=== PATIENT | male | born 1960 | race Caucasian/White ===

== ENCOUNTER 2020-06-07 09:46 | Outpatient (REF) | payer OTHER, SELFPAY ==
[2020-06-07 11:46] LABS: Alanine Aminotransferase 19 U/L (0-40); Albumin Level 4.2 g/dL (3.5-5.0); Alkaline Phosphatase 21 U/L (39-117); Anion Gap 13 (12-20); Aspartate Amino Transferase 16 U/L (5-37); Bilirubin Total 0.4 mg/dL (0.0-1.0); Blood Urea Nitrogen 21 mg/dL (9-16); Calcium 9.6 mg/dL (8.4-10.2); Carbon Dioxide 24 mmol/L (22-29); Chloride 106 mmol/L (96-108); Cholesterol 154 mg/dL; Estimated Glomerular Filt Rate 47; Glucose Fasting 97 mg/dL (60-99); HDL Cholesterol 44 mg/dL; LDL Cholesterol Calculated 80 mg/dl; Potassium 4.2 mmol/l (3.3-5.1); Sodium 139 mmol/L (135-145); Total Protein 6.9 g/dL (6.5-8.0); Triglycerides 154 mg/dL
[2020-06-07 12:09] LABS: Vitamin D 25-OH Total 36.1 ng/mL (>30)
== END 2020-06-07 09:47 | disposition home or self-care (01) ==
LOC: HO.HMGCLDS 09:46
PROVIDERS: PCP Internal Medicine; Visit Provider Internal Medicine
DX: E78.9 Disorder of lipoprotein metabolism, unspecified (principal); I10 Essential (primary) hypertension; E55.9 Vitamin D deficiency, unspecified
CPT/HCPCS: 80053; 80061; 82306

== ENCOUNTER 2021-08-30 11:51 | Outpatient (REF) | payer OTHER, SELFPAY ==
[2021-08-30 14:20] LABS: Alanine Aminotransferase 34 U/L (0-40); Albumin Level 4.4 g/dL (3.5-5.0); Alkaline Phosphatase 21 U/L (39-117); Anion Gap 11 (12-20); Aspartate Amino Transferase 24 U/L (5-37); Bilirubin Total 0.5 mg/dL (0.0-1.0); Blood Urea Nitrogen 15 mg/dL (9-16); Calcium 10.2 mg/dL (8.4-10.2); Carbon Dioxide 24 mmol/L (22-29); Chloride 111 mmol/L (96-108); Estimated Glomerular Filt Rate 54; Glucose Random 103 mg/dL (60-115); Sodium 142 mmol/L (135-145); Total Protein 7.1 g/dL (6.5-8.0)
[2021-09-01 03:26] LABS: LDL Cholesterol Direct 109 mg/dL (<100)
== END 2021-08-30 11:52 | disposition home or self-care (01) ==
LOC: HO.HMGCLDS 11:51
PROVIDERS: PCP Internal Medicine; Visit Provider Internal Medicine
DX: I10 Essential (primary) hypertension (principal); E78.9 Disorder of lipoprotein metabolism, unspecified; N28.9 Disorder of kidney and ureter, unspecified
CPT/HCPCS: 36415; 80053; 83721

== ENCOUNTER 2022-04-11 11:42 | Outpatient (REF) | payer OTHER, SELFPAY ==
[2022-04-11 14:23] LABS: Alanine Aminotransferase 26 U/L (0-40); Albumin Level 4.6 g/dL (3.5-5.0); Alkaline Phosphatase 24 U/L (39-117); Anion Gap 16 (12-20); Aspartate Amino Transferase 23 U/L (5-37); Bilirubin Total 0.2 mg/dL (0.0-1.0); Blood Urea Nitrogen 14 mg/dL (9-16); Calcium 10.1 mg/dL (8.4-10.2); Carbon Dioxide 20 mmol/L (22-29); Chloride 109 mmol/L (96-108); Estimated Glomerular Filt Rate 60; Glucose Random 74 mg/dL (60-115); Potassium 3.9 mmol/L (3.3-5.1); Sodium 141 mmol/L (135-145); Total Protein 7.5 g/dL (6.5-8.0)
[2022-04-13 06:52] LABS: LDL Cholesterol Direct 110 mg/dL (<100)
== END 2022-04-11 11:43 | disposition home or self-care (01) ==
LOC: HO.HMGCLDS 11:42
PROVIDERS: PCP Internal Medicine; Visit Provider Internal Medicine
DX: E78.9 Disorder of lipoprotein metabolism, unspecified (principal); F80.81 Childhood onset fluency disorder; F81.9 Developmental disorder of scholastic skills, unspecified; N28.9 Disorder of kidney and ureter, unspecified; I10 Essential (primary) hypertension
CPT/HCPCS: 36415; 80053; 83721

== ENCOUNTER 2023-04-17 12:05 | Outpatient (AMB) | payer OTHER, SELFPAY ==
--- NOTE | 2023-04-17 12:08 | A.OFFPC_ITS ---
Vital Signs 04/17/23 12:15 Height 5 ft 7 in Weight 183 lb BMI 28.7 BP 162/106 H Blood Pressure Location Rt brachial Position Sitting Pulse 83 Pulse Source Pulse Oximeter Pulse Oximetry (%) 97 Oxygen Delivery Method Room Air Intake Visit Reasons: Discuss hearing issues/test Allergies No Known Allergies Allergy (Verified 04/17/23 12:08) Medication List - Last Reconciled 04/17/23 by Jimmy Rucker MD amlodipine 5 mg PO DAILY cholecalciferol (vitamin D3) 25 mcg PO DAILY 90 days simvastatin 40 mg PO BEDTIME Tobacco use date assessed: 04/17/23 Fall risk assessment: No Falls in past year Last assessed Fall Risk: 04/17/23 Dental Screening Dental Screen Date: 04/17/23 Did you have a dental visit in the last 12 months?: No Did you have a dental problem in the last 6 months where you did not have access to dental care?: No Was dental information given to patient?: Patient has dentist HPI Discuss hearing issues/test HPI Details Patient is 62-year-old gentleman with learning disability came in with his brother for follow-up appointment Patient has not been seen since 1 year He is seeing Dr. Burton nephrology last note was from March of this year, reviewed No changes were made Patient is currently on amlodipine 5 mg but he has not been taking the medication since he was not seen the medication was not filled He is also supposed to be on simvastatin 40 mg, both medications sent. His brother says that they have a blood pressure monitor at home which is working properly because they recently checked it on their mother any does high, she was taken to emergency room EMT checked the blood pressure when they arrived home and it was the same blood pressure as their own blood pressure monitor. Brother says that the blood pressure is running around 120 systolic at home patient usually feel nervous when he comes to doctor's office. Patient is having difficulty hearing and the brother is requesting audiology prabhakar ointment which I have placed for the patient On examination he does have cerumen blocking tympanic membrane left more than right, I would recommend that is start using Debrox [id number] for a week to clear that. We can also flush the ears after the week of using Debrox if needed. Labs were done at Dr. Burton office I will get the reports. Follow-up 4 months [facility] Medical History Stuttering Nephropathy Lipid disorder Hypertension, essential Surgical History History of colonoscopy Hx of cholecystectomy Family History Father Alcohol abuse Mother HTN (hypertension) Sister Lung cancer Maternal Grandfather No problems noted. Maternal Grandmother No problems noted. Paternal Grandfather No problems noted. Paternal Grandmother No problems noted. Sister No problems noted. Sister No problems noted. Brother No problems noted. Brother No problems noted. Brother No problems noted. Brother No problems noted. Brother No problems noted. Social History Housing: Other (mobile home) Alcohol intake: never Patient Tobacco Use Status: Never used Tobacco e-Cigarette/Vaping Use: Never Used Second Hand Smoke Exposure: No Current occupational status: unemployed Cognitive needs: No Hearing needs: No Vision needs: No Questionnaire PHQ-9 Over the last 2 weeks, how often have you been bothered by any of the following problems? 1. Little interest or pleasure in doing things: not at all 2. Feeling down, depressed, or hopeless: not at all 3. Trouble falling or staying asleep, or sleeping too much: not at all 4. Feeling tired or having little energy: not at all 5. Poor appetite or overeating: not at all 6. Feeling bad about yourself - or that you are a failure or have let yourself or your family down: not at all 7. Trouble concentrating on things, such as reading the newspaper or watching television: nearly every day 8. Moving or speaking so slowly that other people could have noticed. Or the opposite - being so fidgety or restless that you have been moving around a lot more than usual: nearly every day 9. Thoughts that you would be better off or of hurting yourself in some way: not at all Total score: 6 Depression Screening Interpretation: Positive Depression Screening Follow-up: Existing condition and Follow-up Visit Requested Depression Screening Done: Yes 65499 - PHQ-9 Billing: Yes Source: Developed by Drs. Yeison Vora, Yemi Artis and colleagues, with an educational wood from [employer]. Thrive Questionnaire Date Thrive assessed: 04/17/23 I am a: Patient What is your living situation today?: I have a steady place to live Within the past 12 months, did the food you bought not last and you didn't have the money to get more?: Never true Within the past 12 months, did you worry whether your food would run out before you got money to buy more?: Never true Do you have trouble paying for medicines?: No Do you have trouble getting transportation to medical appointments?: No Do you have trouble paying your heating and electricity bill?: No Do you have trouble taking care of your child, family member or friend?: No Do you have trouble with day-to-day activities such as bathing, preparing meals, shopping, managing finances, etc.?: No Are you currently unemployed and looking for a job?: No Are you interested in more education?: No Please select the resources that you would like help with: None Currently or been in a relationship where the following occur: no concerns reported AUDIT C Alcohol Use Questionnaire (AUDIT-C) 1. How often do you have a drink containing alcohol?: Never 3. How often do you have six or more drinks on one occasion?: Never Total Score: 0 Score Reviewed/Action Taken: Yes JED-7 AMB Questionnaire JED-7 Date JED - 7 assessed: 04/17/23 Feeling nervous, anxious, or on edge: 0 = Not at all Not being able to stop or control worryin = Not at all Worrying too much about different things: 0 = Not at all Trouble relaxin = Not at all Being so restless that it is hard to sit still: 0 = Not at all Becoming easily annoyed or irritable: 0 = Not at all Feeling afraid as if something awful might happen: 0 = Not at all Total JED-7 score (0-4 normal; 5-9 mild; 10-14 moderate; 15-21 severe): 0 Source: Developed by Drs. Yeison Vora, Stacey Nieves, Yemi Eugene and colleagues, with an educational wood from [employer]. JED-7 Assessment Billing JED-7 Assessment Tool: JED-7 Assessment 95013 Review of Systems Const Denies chills and Denies fever(s) ENT Denies epistaxis and Denies nasal discharge Card Denies chest pain Resp Denies chest congestion, Denies cough and Denies hemoptysis GI Denies diarrhea and Denies nausea Skin/Breast Denies rash Neuro Reports no additional complaints Psych Reports no additional complaints Endo Reports no additional complaints Physical exam (Primary Care) Vital Signs: Last Vital Signs Pulse 83 04/17/23 12:15 BP 162/106 H 04/17/23 12:15 Pulse Ox 97 04/17/23 12:15 Oxygen Delivery Method Room Air 04/17/23 12:15 BMI result Body Mass Index 28.7 Tobacco/Smoking Status: Tobacco use Status Tobacco use date assessed 04/17/23 04/17/23 12:11 Patient Tobacco Use Status Never used Tobacco 04/17/23 12:11 e-Cigarette/Vaping Use Never Used 04/17/23 12:11 PHQ-9: PHQ-9 Score PHQ-9: Total score 6 04/17/23 12:53 Depression Screening Interpretation: Positive Depression Screening Follow-up: Existing condition and Follow-up Visit Requested Thrive Assessment: Date of Thrive Assessment Date Thrive assessed 04/17/23 04/17/23 12:53 Currently or been in a relationship where the following occur: no concerns reported Const General: cooperative, comfortable and no acute distress Orientation/consciousness: patient oriented x3 HENMT Other: Excessive cerumen in both ears Head: Yes normocephalic Eyes General: appearance normal, both eyes and all related structures Neck Neck: Yes supple Resp Effort & Inspection: normal respiratory effort, no cough and no stridor Cardio Rhythm: regular rhythm Heart sounds: S1 normal heart sound present and S2 normal heart sound present Skin General skin exam: turgor normal Neuro General: patient oriented x3, tone normal and moves all extremities Extrem Right lower extremity: no edema Left lower extremity: no edema Assessment and Plan Assessment & Plan (1) Hypertension, essential: Code(s): I10 - Essential (primary) hypertension (2) Lipid disorder: Code(s): E78.9 - Disorder of lipoprotein metabolism, unspecified (3) Blurring of vision: Code(s): H53.8 - Other visual disturbances (4) Difficulty hearing: Code(s): H91.90 - Unspecified hearing loss, unspecified ear Qualifiers: Laterality: bilateral Qualified Code(s): H91.93 - Unspecified hearing loss, bilateral (5) Excessive cerumen in both ear canals: Code(s): H61.23 - Impacted cerumen, bilateral (6) Stuttering: Code(s): F80.81 - Childhood onset fluency disorder (7) Nephropathy: Code(s): N28.9 - Disorder of kidney and ureter, unspecified Plan Patient is 62-year-old gentleman with learning disability came in with his brother for follow-up appointment Patient has not been seen since 1 year He is seeing Dr. Burton nephrology last note was from March of this year, reviewed No changes were made Patient is currently on amlodipine 5 mg but he has not been taking the medication since he was not seen the medication was not filled He is also supposed to be on simvastatin 40 mg, both medications sent. His brother says that they have a blood pressure monitor at home which is working properly because they recently checked it on their mother any does high, she was taken to emergency room EMT checked the blood pressure when they arrived home and it was the same blood pressure as their own blood pressure monitor. Brother says that the blood pressure is running around 120 systolic at home pat ient usually feel nervous when he comes to doctor's office. Patient is having difficulty hearing and the brother is requesting audiology appointment which I have placed for the patient On examination he does have cerumen blocking tympanic membrane left more than right, I would recommend that is start using Debrox [id number] for a week to clear that. We can also flush the ears after the week of using Debrox if needed. Labs were done at Dr. Burton office I will get the reports. Patient has never had eye exam, he is now having difficulty reading, and is in need for ophthalmology evaluation Follow-up 4 months Orders: Referrals Ophthalmology Referral H53.8 - Other visual disturbances Audiology Referral H91.90 - Unspecified hearing loss, unspecified ear Coding Level of Care Code Est Pt Level 4 (77008) Diagnoses Hypertension, essential I10 Lipid disorder E78.9 Blurring of vision H53.8 Hearing difficulty of both ears H91.93 Laterality: bilateral Excessive cerumen in both ear canals H61.23 Stuttering F80.81 Nephropathy N28.9 Additional Codes JED-7 Assessment Billing - JED-7 Assessment Tool: JED-7 Assessment 15554 ([id number])
[2023-04-17 12:15] VITALS: BP 162/106; PULSE 83; O2SAT 97; BMI 28.7
== END 2023-04-17 12:39 | disposition home or self-care (01) ==
PROVIDERS: PCP Internal Medicine; Visit Provider Internal Medicine
DX: I10 Essential (primary) hypertension (principal); E78.9 Disorder of lipoprotein metabolism, unspecified; H53.8 Other visual disturbances; H91.93 Unspecified hearing loss, bilateral; H61.23 Impacted cerumen, bilateral; F80.81 Childhood onset fluency disorder; N28.9 Disorder of kidney and ureter, unspecified
CPT/HCPCS: 99214

== ENCOUNTER 2023-07-20 10:25 | Outpatient (REF) | payer MEDICAID, SELFPAY | END 2023-07-20 10:26 | disposition home or self-care (01) | LOC: HO.SH 10:25 | PROVIDERS: Visit Provider Internal Medicine | DX: Z01.118 Encounter for examination of ears and hearing with other abnormal findings (principal); H61.22 Impacted cerumen, left ear | CPT/HCPCS: 92567 ==

== ENCOUNTER 2023-07-27 08:16 | Outpatient (AMB) | payer MEDICARE, MEDICAID, SELFPAY ==
[2023-07-27 08:40] VITALS: BP 160/90; PULSE 97; TEMP 36.5; O2SAT 97; BMI 28.2
--- NOTE | 2023-07-27 08:40 | MHC.OFFWIV ---
Intake Vital Signs 07/27/23 08:40 Height 5 ft 7 in Weight 180 lb BMI 28.2 BP 160/90 H Blood Pressure Location Lt brachial Position Sitting Pulse 97 Pulse Source Pulse Oximeter Temp 97.7 F Temp Source Temporal Artery Scan Pulse Oximetry (%) 97 Oxygen Delivery Method Room Air Intake Visit Reasons: EST/ear wax removal(lobby) Intake Note: pt is here today for ear wax removal started 1 week ago Patient Tobacco Use Status: Never used Tobacco Allergies No Known Allergies Allergy (Verified 07/27/23 08:40) Do you need a note to return to daycare/school/sports/work: No HPI HPI Comments History of Present Illness Details This is a 63-year-old male who presented to the office complaining of cerumen impaction. Patient went for a hearing test last week and was told he had ear wax in both of his ears and he needed them cleaned out before he could have the hearing test. [facility] Medical History Stuttering Nephropathy Lipid disorder Hypertension, essential Surgical History History of colonoscopy Hx of cholecystectomy Family History Father Alcohol abuse Mother HTN (hypertension) Sister Lung cancer Maternal Grandfather No problems noted. Maternal Grandmother No problems noted. Paternal Grandfather No problems noted. Paternal Grandmother No problems noted. Sister No problems noted. Sister No problems noted. Brother No problems noted. Brother No problems noted. Brother No problems noted. Brother No problems noted. Brother No problems noted. Social History Housing: Other Alcohol intake: never Patient Tobacco Use Status: Never used Tobacco e-Cigarette/Vaping Use: Never Used Second Hand Smoke Exposure: No Current occupational status: unemployed Cognitive needs: No Hearing needs: No Vision needs: No Review of Systems Const All systems reviewed & are unremarkable except as noted in HPI and below Reports no additional complaints Eyes Reports no additional complaints ENT Reports no additional complaints Card Reports no additional complaints Resp Reports no additional complaints GI Reports no additional complaints Reports no additional complaints Musc Reports no additional complaints Skin/Breast Reports system reviewed and no additional complaints, except as documented Neuro Reports no additional complaints Psych Reports no additional complaints Endo Reports no additional complaints Ever/Lymph Reports no additional complaints Aller/Immun Reports no additional complaints Physical Exam Vital Signs: Last Vital Signs Temp 97.7 F 07/27/23 08:40 Pulse 97 07/27/23 08:40 BP 160/90 H 07/27/23 08:40 Pulse Ox 97 07/27/23 08:40 Oxygen Delivery Method Room Air 07/27/23 08:40 BMI result Body Mass Index 28.2 Const Other: Vital signs reviewed. Constitutional: Non-toxic appearing. No acute distress. Well-developed and well-nourished. HEENT: Normocephalic and atraumatic. Bilateral cerumen impaction, left greater than right. There is some swelling of bilateral external auditory canals. Skin: Warm and dry. No rashes or lesions noted. Neck: Full and painless range of motion. No cervical lymphadenopathy. Cardio: Regular rate and rhythm. No murmurs, gallops, or rubs. No lower extremity edema. No JVD. Pulmonary: No respiratory distress. No accessory muscle usage. Clear to auscultation bilaterally without wheezing, crackles, or rhonchi. Gastrointestinal: Soft, nontender, and nondistended in all 4 quadrants. Normoactive bowel sounds in all 4 quadrants. Genitourinary: No CVA tenderness. Musculoskeletal: Normal range of motion in joints throughout the body. No deformity or other signs of injury. Neuro: Alert and oriented x4. Cranial nerves 2-12 grossly intact. No focal deficits appreciated. Psych: Normal mood and affect. Assessment & Plan Assessment & Plan (1) Excessive cerumen in both ear canals: Code(s): H61.23 - Impacted cerumen, bilateral Plan: This is a 63-year-old male who presented the office complaining of bilateral cerumen impaction. We attempted cerumen removal bilaterally. On reexamination, there is persistent bilateral cerumen impaction though both ears do appear somewhat improved and the patient reports both ears do feel better. The cerumen appears to be deep in the external auditory canal and we are unable to completely irrigate his ears in the urgent care. I recommended the patient obtain an ear/nose/throat referral from his primary care physician for further management as the patient became dizzy with irrigation and we are unable to remove all of the cerumen. Patient and his caregiver agree with this plan and they will schedule an appointment with his PCP for further management. Medications: New hydrocortisone-acetic acid 1-2 % 4 drps otic (ears) TID 10 mL 0RF Coding Level of Care Code Est Pt Level 3 (47771) Diagnoses Excessive cerumen in both ear canals H61.23
== END 2023-07-27 09:32 | disposition home or self-care (01) ==
PROVIDERS: PCP Internal Medicine; Visit Provider Physician Assistant Medical
DX: H61.23 Impacted cerumen, bilateral (principal)
CPT/HCPCS: 99213

== ENCOUNTER 2023-08-08 15:09 | Outpatient (AMB) | payer MEDICARE, MEDICAID, SELFPAY ==
[2023-08-08 15:13] VITALS: BP 172/104; PULSE 112; O2SAT 97; BMI 28.4
--- NOTE | 2023-08-08 15:13 | MHC.PC.OV ---
Vital Signs 08/08/23 15:13 Height 5 ft 7 in Weight 181 lb 2 oz BMI 28.4 BP 172/104 H Blood Pressure Location Rt brachial Position Sitting Pulse 112 H Pulse Source Pulse Oximeter Pulse Oximetry (%) 97 Oxygen Delivery Method Room Air Intake Visit Reasons: ENT referral Ear obstruction rt side Allergies No Known Allergies Allergy (Verified 08/08/23 15:13) Medication List - Last Reconciled 08/08/23 by Jimmy Rucker MD amlodipine 10 mg PO DAILY 90 days cholecalciferol (vitamin D3) 25 mcg PO DAILY 90 days hydrocortisone-acetic acid 1-2 % 4 drps otic (ears) TID simvastatin 40 mg PO BEDTIME Tobacco use date assessed: 08/08/23 Fall risk assessment: No Falls in past year Last assessed Fall Risk: 08/08/23 Dental Screening Dental Screen Date: 08/08/23 Did you have a dental visit in the last 12 months?: Yes Did you have a dental problem in the last 6 months where you did not have access to dental care?: No Was dental information given to patient?: Patient has dentist HPI ENT referral Ear obstruction rt side HPI Details Patient is 63-year-old gentleman with learning disability came in here with his brother His blood pressure is very high at 172/104, usually it is have any comes over for Dr. Visit Brother is monitoring blood pressure at home and he tells me that it is running around high 130s to 140 I am adding atenolol 25 mg to his amlodipine 10 mg He is also having excessive vaccine is year, we have tried to irrigate the wax today He is also due for labs Patient is to return in 3 weeks for follow-up for blood pressure and labs [facility] Medical History Stuttering Nephropathy Lipid disorder Hypertension, essential Surgical History History of colonoscopy Hx of cholecystectomy Family History Father Alcohol abuse Mother HTN (hypertension) Sister Lung cancer Maternal Grandfather No problems noted. Maternal Grandmother No problems noted. Paternal Grandfather No problems noted. Paternal Grandmother No problems noted. Sister No problems noted. Sister No problems noted. Brother No problems noted. Brother No problems noted. Brother No problems noted. Brother No problems noted. Brother No problems noted. Social History Housing: Other Alcohol intake: never Patient Tobacco Use Status: Never used Tobacco e-Cigarette/Vaping Use: Never Used Second Hand Smoke Exposure: No service: No Current occupational status: unemployed Cognitive needs: No Hearing needs: No Vision needs: No Questionnaire Thrive Questionnaire Date Thrive assessed: 04/17/23 AUDIT C Alcohol Use Questionnaire (AUDIT-C) 1. How often do you have a drink containing alcohol?: Never 3. How often do you have six or more drinks on one occasion?: Never Total Score: 0 Score Reviewed/Action Taken: Yes JED-7 AMB Questionnaire JED-7 Date JED - 7 assessed: 04/17/23 Source: Developed by Drs. Yeison Vora, Stacey Nieves, Yemi Eugene and colleagues, with an educational wood from [employer]. Review of Systems Const Denies chills and Denies fever(s) ENT Denies epistaxis and Denies nasal discharge Card Denies chest pain Resp Denies chest congestion, Denies cough and Denies hemoptysis GI Denies diarrhea and Denies nausea Skin/Breast Denies rash Neuro Reports no additional complaints Psych Reports no additional complaints Endo Reports no additional complaints Physical exam (Primary Care) Vital Signs: Last Vital Signs Pulse 112 H 08/08/23 15:13 BP 172/104 H 08/08/23 15:13 Pulse Ox 97 08/08/23 15:13 Oxygen Delivery Method Room Air 08/08/23 15:13 BMI result Body Mass Index 28.4 Tobacco/Smoking Status: Tobacco use Status Tobacco use date assessed 08/08/23 08/08/23 15:15 Patient Tobacco Use Status Never used Tobacco 08/08/23 15:15 e-Cigarette/Vaping Use Never Used 08/08/23 15:15 Thrive Assessment: Date of Thrive Assessment Date Thrive assessed 04/17/23 08/08/23 15:15 Const General: cooperative, comfortable and no acute distress Orientation/consciousness: patient oriented x3 HENMT Head: Yes normocephalic Eyes General: appearance normal, both eyes and all related structures Neck Neck: Yes supple Resp Effort & Inspection: normal respiratory effort, no cough and no stridor Cardio Rhythm: regular rhythm Heart sounds: S1 normal heart sound present and S2 normal heart sound present Skin General skin exam: turgor normal Neuro General: patient oriented x3, tone normal and moves all extremities Extrem Right lower extremity: no edema Left lower extremity: no edema Office Procedures Cerumen Removal From which ear canal was the cerumen removed: bilateral Removal: irrigation Notes: patient tolerated procedure well, no complications and ear canal clear [id number] Irrigation/Lavage Assessment and Plan Assessment & Plan (1) Uncontrolled hypertension: Code(s): I10 - Essential (primary) hypertension (2) Excessive cerumen in both ear canals: Code(s): H61.23 - Impacted cerumen, bilateral (3) Learning disability: Code(s): F81.9 - Developmental disorder of scholastic skills, unspecified (4) Nephropathy: Code(s): N28.9 - Disorder of kidney and ureter, unspecified (5) Lipid disorder: Code(s): E78.9 - Disorder of lipoprotein metabolism, unspecified Plan Patient is 63-year-old gentleman with learning disability came in here with his brother , patient have a history of nephropathy most likely secondary to hypertension His blood pressure is very high at 172/104, usually it is have any comes over for Dr. Visit Brother is monitoring blood pressure at home and he tells me that it is running around high 130s to 140 I am adding atenolol 25 mg to his amlodipine 10 mg He is also having excessive vaccine is year, we have tried to irrigate the wax today He is also due for labs Patient is to return in 3 weeks for follow-up for blood pressure and labs Orders: Orders LDL Cholesterol Direct Today E78.9 - Disorder of lipoprotein metabolism, unspecified, F81.9 - Developmental disorder of scholastic skills, unspecified, H61.23 - Impacted cerumen, bilateral, I10 - Essential (primary) hypertension, N28.9 - Disorder of kidney and ureter, unspecified TSH reflex Free T4 Today E78.9 - Disorder of lipoprotein metabolism, unspecified, F81.9 - Developmental disorder of scholastic skills, unspecified, H61.23 - Impacted cerumen, bilateral, I10 - Essential (primary) hypertension, N28.9 - Disorder of kidney and ureter, unspecified Complete Blood Count Auto Diff Today E78.9 - Disorder of lipoprotein metabolism, unspecified, F81.9 - Developmental disorder of scholastic skills, unspecified, H61.23 - Impacted cerumen, bilateral, I10 - Essential (primary) hypertension, N28.9 - Disorder of kidney and ureter, unspecified Comprehensive Met. Panel Today E78.9 - Disorder of lipoprotein metabolism, unspecified, F81.9 - Developmental disorder of scholastic skills, unspecified, H61.23 - Impacted cerumen, bilateral, I10 - Essential (primary) hypertension, N28.9 - Disorder of kidney and ureter, unspecified Medications: New atenolol 25 mg PO DAILY 30 tabs 0RF Coding Level of Care Code Est Pt Level 4 (67921) Diagnoses Uncontrolled hypertension I10 Excessive cerumen in both ear canals H61.23 Learning disability F81.9 Nephropathy N28.9 Lipid disorder E78.9 CPT Codes Office Procedure - CPT: 31230-Baz Irrigation/Lavage ([id number])
== END 2023-08-08 15:48 | disposition home or self-care (01) ==
PROVIDERS: PCP Internal Medicine; Visit Provider Internal Medicine
DX: I10 Essential (primary) hypertension (principal); H61.23 Impacted cerumen, bilateral; F81.9 Developmental disorder of scholastic skills, unspecified; N28.9 Disorder of kidney and ureter, unspecified; E78.9 Disorder of lipoprotein metabolism, unspecified
CPT/HCPCS: 69209; 99214

== ENCOUNTER 2023-08-09 11:12 | Outpatient (REF) | payer MEDICAID, SELFPAY ==
[2023-08-09 13:13] LABS: MANUAL DIFF FLAG NO
[2023-08-09 14:12] LABS: Basophils Absolute Auto 0.1 X10*3/uL (0.0-0.2); Basophils Percent Auto 0.7 % (0-2); Eosinophils Absolute Auto 0.1 X10*3/uL (0.0-0.4); Eosinophils Percent Auto 1.7 % (0-4); Hematocrit 49.9 % (42.0-52.0); Hemoglobin 16.8 g/dl (14.0-18.0); Imm Gran Abs Auto 0.03 X10*3/uL (0.00-0.03); Imm Gran Pct Auto 0.4 % (0.0-0.4); Lymphocytes Absolute Auto 2.8 X10*3/uL (1.2-4.9); Lymphocytes Percent Auto 33.6 % (20-40); Mean Corpuscular HGB Conc 33.7 g/dl (31.0-36.0); Mean Corpuscular Hemoglobin 29.6 pg (27.0-33.0); Mean Platelet Volume 12.3 fL (9.4-12.4); Monocytes Absolute Auto 0.7 X10*3/uL (0.1-1.2); Monocytes Percent Auto 8.6 % (2-11); Neutrophils Absolute Auto 4.5 x10*3/uL (2.0-8.3); Platelet Count 202 X10*3/uL (160-400); Red Blood Count 5.67 X10*6/uL (4.60-5.80); Red Cell Distribution Width 13.2 % (11.0-16.0); White Blood Count 8.2 X10*3/uL (4.8-10.8)
[2023-08-09 14:36] LABS: Alanine Aminotransferase 25 U/L (0-40); Albumin Level 4.4 g/dL (3.5-5.0); Alkaline Phosphatase 44 U/L (39-117); Anion Gap 14 (12-20); Aspartate Amino Transferase 23 U/L (5-37); Bilirubin Total 0.4 mg/dL (0.0-1.0); Blood Urea Nitrogen 13 mg/dL (9-16); Calcium 10.2 mg/dL (8.4-10.2); Carbon Dioxide 22 mmol/L (22-29); Chloride 110 mmol/L (96-108); Estimated Glomerular Filt Rate > 60; Glucose Random 98 mg/dL (60-115); Potassium 3.9 mmol/L (3.3-5.1); Sodium 142 mmol/L (135-145); Total Protein 7.8 g/dL (6.5-8.0)
[2023-08-09 14:43] LABS: TSH reflex Free T4 0.18 uIU/mL (0.32-4.0)
[2023-08-09 15:26] LABS: Free T4 (Free Thyroxine) 0.94 ng/dL (0.71-1.85)
[2023-08-10 09:18] LABS: LDL Cholesterol Direct 87 mg/dL (<100)
== END 2023-08-09 11:13 | disposition home or self-care (01) ==
LOC: HO.HMGCLDS 11:12
PROVIDERS: PCP Internal Medicine; Visit Provider Internal Medicine
DX: I10 Essential (primary) hypertension (principal); N28.9 Disorder of kidney and ureter, unspecified; E78.9 Disorder of lipoprotein metabolism, unspecified; H61.23 Impacted cerumen, bilateral; F81.9 Developmental disorder of scholastic skills, unspecified
CPT/HCPCS: 36415; 80053; 83721; 84439; 84443; 85025

== ENCOUNTER 2023-09-06 08:26 | Outpatient (REF) | payer MEDICARE, MEDICAID, SELFPAY ==
[2023-09-06 12:05] LABS: TSH reflex Free T4 2.25 uIU/mL (0.32-4.0)
== END 2023-09-06 08:27 | disposition home or self-care (01) ==
LOC: HO.HMGCLDS 08:26
PROVIDERS: PCP Internal Medicine; Visit Provider Internal Medicine
DX: R79.89 Other specified abnormal findings of blood chemistry (principal)
CPT/HCPCS: 36415; 84443

== ENCOUNTER 2023-10-10 14:11 | Outpatient (AMB) | payer MEDICARE, MEDICAID, SELFPAY ==
[2023-10-10 14:11] VITALS: BP 146/88; PULSE 75; O2SAT 95; BMI 29.3
--- NOTE | 2023-10-10 14:11 | A.OFFPC_ITS ---
Vital Signs 3 10/10/23 14:11 Height 5 ft 7 in Weight 187 lb 4 oz BMI 29.3 BP 146/88 H Blood Pressure Location Rt brachial Position Sitting Pulse 75 Pulse Source Pulse Oximeter Pulse Oximetry (%) 95 Oxygen Delivery Method Room Air Intake Visit Reasons: 3 week follow up Allergies No Known Allergies Allergy (Verified 10/10/23 14:12) Medication List - Last Reconciled 10/10/23 by Jimmy Rucker MD amlodipine 10 mg PO DAILY 90 days atenolol 25 mg PO DAILY cholecalciferol (vitamin D3) 25 mcg PO DAILY 90 days hydrocortisone-acetic acid 1-2 % 4 drps otic (ears) TID simvastatin 40 mg PO BEDTIME Tobacco use date assessed: 10/10/23 Fall risk assessment: No Falls in past year Last assessed Fall Risk: 10/10/23 Dental Screening Dental Screen Date: 10/10/23 Did you have a dental visit in the last 12 months?: Yes Did you have a dental problem in the last 6 months where you did not have access to dental care?: No Was dental information given to patient?: Patient has dentist HPI 3 week follow up 2 HPI0 Details Patient is 63-year-old gentleman with learning disability came in here with his brother , He has developed cauliflower shaped skin growth on his left ear, that need to be evaluated by Dermatology patient have a history of nephropathy most likely secondary to hypertension His blood pressure is now controlled, patient is on atenolol 25 mg and amlodipine 10 mg They are monitoring it at home and it runs mostly in 120s sometimes 130 systolic It is elevated today but that could be because patient is in doctor's office. Labs are needed before next visit in December patient have appointment for physical exam [facility] Medical History Stuttering Nephropathy Lipid disorder Hypertension, essential Surgical History History of colonoscopy Hx of cholecystectomy Family History Father Alcohol abuse Mother HTN (hypertension) Sister Lung cancer Maternal Grandfather No problems noted. Maternal Grandmother No problems noted. Paternal Grandfather No problems noted. Paternal Grandmother No problems noted. Sister No problems noted. Sister No problems noted. Brother No problems noted. Brother No problems noted. Brother No problems noted. Brother No problems noted. Brother No problems noted. Social History Housing: Other Alcohol intake: never Patient Tobacco Use Status: Never used Tobacco e-Cigarette/Vaping Use: Never Used Second Hand Smoke Exposure: No service: No Current occupational status: unemployed Cognitive needs: No Hearing needs: No Vision needs: No Questionnaire Thrive Questionnaire Date Thrive assessed: 04/17/23 AUDIT C Alcohol Use Questionnaire (AUDIT-C) 1. How often do you have a drink containing alcohol?: Never 3. How often do you have six or more drinks on one occasion?: Never Total Score: 0 Score Reviewed/Action Taken: Yes JED-7 AMB Questionnaire JED-7 Date JED - 7 assessed: 04/17/23 Source: Developed by Drs. Yeison Vora, Stacey Nieves, Yemi Eugene and colleagues, with an educational wood from [employer]. Review of Systems Const Denies chills and Denies fever(s) ENT Denies epistaxis and Denies nasal discharge Card Denies chest pain Resp Denies chest congestion, Denies cough and Denies hemoptysis GI Denies diarrhea and Denies nausea Skin/Breast Denies rash Neuro Reports no additional complaints Psych Reports no additional complaints Endo Reports no additional complaints Physical exam (Primary Care) Vital Signs: Last Vital Signs Pulse 75 10/10/23 14:11 BP 146/88 H 10/10/23 14:11 Pulse Ox 95 10/10/23 14:11 Oxygen Delivery Method Room Air 10/10/23 14:11 BMI result Body Mass Index 29.3 Tobacco/Smoking Status: Tobacco use Status Tobacco use date assessed 10/10/23 10/10/23 14:12 Patient Tobacco Use Status Never used Tobacco 10/10/23 14:12 e-Cigarette/Vaping Use Never Used 10/10/23 14:12 Thrive Assessment: Date of Thrive Assessment Date Thrive assessed 04/17/23 10/10/23 14:12 Const General: cooperative, comfortable and no acute distress Orientation/consciousness: patient oriented x3 HENMT Head: Yes normocephalic Head images: 2 1. Small cauliflower shaped skin growth Eyes General: appearance normal, both eyes and all related structures Neck Neck: Yes supple Resp Effort & Inspection: normal respiratory effort, no cough and no stridor Cardio Rhythm: regular rhythm Heart sounds: S1 normal heart sound present and S2 normal heart sound present Skin General skin exam: turgor normal Neuro General: patient oriented x3, tone normal and moves all extremities Extrem Right lower extremity: no edema Left lower extremity: no edema Assessment and Plan Assessment & Plan (1) Hypertension, essential: Code(s): I10 - Essential (primary) hypertension (2) Lipid disorder: Code(s): E78.9 - Disorder of lipoprotein metabolism, unspecified (3) Nephropathy: Code(s): N28.9 - Disorder of kidney and ureter, unspecified (4) Stuttering: Code(s): F80.81 - Childhood onset fluency disorder (5) Abnormal skin growth: Code(s): D49.2 - Neoplasm of unspecified behavior of bone, soft tissue, and skin (6) Learning disability: Code(s): F81.9 - Developmental disorder of scholastic skills, unspecified Plan Patient is 63-year-old gentleman with learning disability came in here with his brother , He has developed cauliflower shaped skin growth on his left ear, that need to be evaluated by Dermatology patient have a history of nephropathy most likely secondary to hypertension His blood pressure is now controlled, patient is on atenolol 25 mg and amlodipine 10 mg They are monitoring it at home and it runs mostly in 120s sometimes 130 systolic It is elevated today but that could be because patient is in doctor's office. Continue simvastatin 40 mg for lipid control Labs are needed before next visit in December patient have appointment for physical exam Orders: Orders 2 Comprehensive [place]. Panel Fast 3 Months E78.9 - Disorder of lipoprotein metabolism, unspecified, F80.81 - Childhood onset fluency disorder, F81.9 - Developmental disorder of scholastic skills, unspecified, I10 - Essential (primary) hypertension, N28.9 - Disorder of kidney and ureter, unspecified Complete Blood Count Auto Diff 3 Months E78.9 - Disorder of lipoprotein metabolism, unspecified, F80.81 - Childhood onset fluency disorder, F81.9 - Developmental disorder of scholastic skills, unspecified, I10 - Essential (primary) hypertension, N28.9 - Disorder of kidney and ureter, unspecified Lipid Panel 3 Months E78.9 - Disorder of lipoprotein metabolism, unspecified, F80.81 - Childhood onset fluency disorder, F81.9 - Developmental disorder of scholastic skills, unspecified, I10 - Essential (primary) hypertension, N28.9 - Disorder of kidney and ureter, unspecified Referrals 2 Dermatology Referral D49.2 - Neoplasm of unspecified behavior of bone, soft tissue, and skin Coding Level of Care Code Est Pt Level 4 (47749) Diagnoses Hypertension, essential I10 Lipid disorder E78.9 Nephropathy N28.9 Stuttering F80.81 Abnormal skin growth D49.2 Learning disability F81.9
== END 2023-10-10 16:18 | disposition home or self-care (01) ==
PROVIDERS: PCP Internal Medicine; Visit Provider Internal Medicine
DX: I10 Essential (primary) hypertension (principal); E78.9 Disorder of lipoprotein metabolism, unspecified; N28.9 Disorder of kidney and ureter, unspecified; F80.81 Childhood onset fluency disorder; D49.2 Neoplasm of unspecified behavior of bone, soft tissue, and skin; F81.9 Developmental disorder of scholastic skills, unspecified
CPT/HCPCS: 99214

== ENCOUNTER 2023-10-24 09:48 | Outpatient (AMB) | payer MEDICARE, MEDICAID, SELFPAY ==
--- NOTE | 2023-10-24 09:53 | MHC.OFFWIV ---
Intake Vital Signs 10/24/23 09:55 Weight 186 lb BP 110/72 Blood Pressure Location Lt brachial Position Sitting Pulse 74 Pulse Source Pulse Oximeter Pulse Oximetry (%) 96 Oxygen Delivery Method Room Air Intake Visit Reasons: EP Runny red eyes, chills Intake Note: Patient here for cough, body aches, bilat eye redness and discharge which has been present for a couple of days. Patient Tobacco Use Status: Never used Tobacco Allergies No Known Allergies Allergy (Verified 10/24/23 09:56) Do you need a note to return to daycare/school/sports/work: No HPI HPI Comments History of Present Illness Details 63 y/o male patient who presents to walk in clinic with c/o URI symptoms x 2 days. Mental disability - sister provides history today. Reports nasal congestion, cough and ear pain. [facility] Medical History Stuttering Nephropathy Lipid disorder Hypertension, essential Surgical History History of colonoscopy Hx of cholecystectomy Family History Father Alcohol abuse Mother HTN (hypertension) Sister Lung cancer Maternal Grandfather No problems noted. Maternal Grandmother No problems noted. Paternal Grandfather No problems noted. Paternal Grandmother No problems noted. Sister No problems noted. Sister No problems noted. Brother No problems noted. Brother No problems noted. Brother No problems noted. Brother No problems noted. Brother No problems noted. Social History Housing: Other Alcohol intake: never Patient Tobacco Use Status: Never used Tobacco e-Cigarette/Vaping Use: Never Used Second Hand Smoke Exposure: No service: No Current occupational status: unemployed Cognitive needs: No Hearing needs: No Vision needs: No Review of Systems Const All systems reviewed & are unremarkable except as noted in HPI and below Physical Exam Vital Signs: Last Vital Signs Pulse 74 10/24/23 09:55 BP 110/72 10/24/23 09:55 Pulse Ox 96 10/24/23 09:55 Oxygen Delivery Method Room Air 10/24/23 09:55 Const General: comfortable and no acute distress Nutritional Appearance: overweight Limitations: behavioral limitations HEENT Head: Yes normocephalic Ears: external ears normal and TM abnormal bulging bilateral, bullous bilateral, erythematous bilateral, with fluid behind the TM bilateral and retracted General nose exam: Abnormal mucous membranes and turbinates present boggy and erythematous and Nasal discharge present Face and sinus: Yes sinus tenderness Mouth: moist mucous membranes Throat: Yes posterior oropharynx normal Eyes Eyelids: Yes eyelid abnormality (Swollen upper eyelids and red) Conjunctivae: conjunctival abnormal bilateral conjunctival injection and discharge purulent Pupils: Equal, round and reactive pupils present EOM: EOMs intact bilaterally Direct Ophthalmoscopy: normal light reflex Resp Effort & Inspection: normal respiratory effort and able to speak in complete sentences Auscultation: clear to auscultation bilaterally, no crackles, no rales, no rhonchi and no wheezes Cardio Rate: regular rate Rhythm: regular rhythm Neuro Cranial nerves: Yes Equal, round and reactive pupils present Assessment & Plan Assessment & Plan (1) Bacterial conjunctivitis: Code(s): H10.9 - Unspecified conjunctivitis Plan: - Abx as directed - Advised good eye Hygiene (2) Acute rhinosinusitis: Code(s): J01.90 - Acute sinusitis, unspecified Plan: -SARs (3) Otitis media: Code(s): H66.90 - Otitis media, unspecified, unspecified ear Qualifiers: Chronicity: acute Laterality: bilateral Otitis media type: suppurative Recurrence: non-recurrent Spontaneous tympanic membrane rupture: without spontaneous rupture Qualified Code(s): H66.003 - Acute suppurative otitis media without spontaneous rupture of ear drum, bilateral Plan: - Take Abx as directed - Acetaminophen for pain relief. Orders: Orders SARS-CoV2/FLU/RSV Today J01.90 - Acute sinusitis, unspecified Medications: New amoxicillin-pot clavulanate 875-125 mg 1 tab PO BID 20 tabs 0RF 10 days H66.003 - Acute suppurative otitis media without spontaneous rupture of ear drum, bilateral acetaminophen 1,000 mg (2 x 500 mg) PO Q6H PRN 30 caps 0RF pain (scale score 4-6) H66.003 - Acute suppurative otitis media without spontaneous rupture of ear drum, bilateral, J01.90 - Acute sinusitis, unspecified ciprofloxacin HCl 0.3% 2 drops into the conjunctival sac every 2 hours while awake for 2 days and 1 to 2 drops every 4 hours while awake for the next 5 days. 5 mL 0RF H10.9 - Unspecified conjunctivitis Coding Level of Care Code Est Pt Level 4 (80994) Diagnoses Bacterial conjunctivitis H10.9 Acute rhinosinusitis J01.90 Non-recurrent acute suppurative otitis media of both ears without spontaneous rupture of tympanic membranes H66.003 Chronicity: acute Laterality: bilateral Otitis media type: suppurative Recurrence: non-recurrent Spontaneous tympanic membrane rupture: without spontaneous rupture Time Spent (min) 20
[2023-10-24 09:55] VITALS: BP 110/72; PULSE 74; O2SAT 96
== END 2023-10-24 10:28 | disposition home or self-care (01) ==
PROVIDERS: PCP Internal Medicine; Visit Provider Nurse Practitioner Family
DX: H10.9 Unspecified conjunctivitis (principal); J01.90 Acute sinusitis, unspecified; H66.003 Acute suppurative otitis media without spontaneous rupture of ear drum, bilateral
CPT/HCPCS: 99214

== ENCOUNTER 2023-10-24 10:29 | Outpatient (REF) | payer MEDICARE, MEDICAID, SELFPAY ==
[2023-10-24 15:33] LABS: Influenza A PCR NEGATIVE (Negative); Influenza B PCR NEGATIVE (Negative); Resp Syncy Virus RNA Qual PCR NEGATIVE (Negative); SARS COV2 PCR INHOUSE NEGATIVE (Negative)
== END 2023-10-24 10:30 | disposition home or self-care (01) ==
LOC: HO.LAB 10:29
PROVIDERS: Visit Provider Nurse Practitioner Family
DX: J01.90 Acute sinusitis, unspecified (principal); J06.9 Acute upper respiratory infection, unspecified
CPT/HCPCS: 0241U

== ENCOUNTER 2024-01-11 12:45 | Outpatient (AMB) | payer MEDICARE, MEDICAID, SELFPAY ==
--- NOTE | 2024-01-11 12:46 | MHC.PC.OV ---
Vital Signs 01/11/24 12:48 Height 5 ft 7 in Weight 186 lb 2 oz BMI 29.1 BP 140/100 H Blood Pressure Location Rt brachial Position Sitting Pulse 78 Pulse Source Pulse Oximeter Pulse Oximetry (%) 98 Oxygen Delivery Method Room Air Intake Visit Reasons: Annual PE Allergies No Known Allergies Allergy (Verified 10/24/23 09:56) Medication List - Last Reconciled 01/11/24 by Jimmy Rucker MD acetaminophen 1,000 mg (2 x 500 mg) PO Q6H PRN amlodipine 10 mg PO DAILY 90 days atenolol 25 mg PO DAILY cholecalciferol (vitamin D3) 25 mcg PO DAILY 90 days ciprofloxacin HCl 0.3% 2 drops into the conjunctival sac every 2 hours while awake for 2 days and 1 to 2 drops every 4 hours while awake for the next 5 days. hydrocortisone-acetic acid 1-2 % 4 drps otic (ears) TID simvastatin 40 mg PO BEDTIME Tobacco use date assessed: 10/10/23 Dental Screening Dental Screen Date: 10/10/23 HPI Annual PE HPI Details Patient is 63-year-old gentlemen with learning disability came in for physical exam with his brother We could not locate any colonoscopy reports in the system at [facility] or [facility] I have placed a referral for him to be evaluated by Gastroenterology Blood pressure is elevated however his brother says that it is running fine at home His blood pressure was 110 x 72 in October of this year on same medications. Currently he is taking amlodipine 10 mg and atenolol 25 mg Lipid disorder: Continue simvastatin 40 mg daily Continue vitamin-D supplement He is complaining of pain in the back of his neck Patient most of the time looking down when he is sitting. Explained to him that this is most likely muscular I would recommend to adjust the posture He may take Tylenol for discomfort. Follow-up 4 months [facility] Medical History Stuttering Nephropathy Lipid disorder Hypertension, essential Surgical History History of colonoscopy Hx of cholecystectomy Family History Father Alcohol abuse Mother HTN (hypertension) Sister Lung cancer Maternal Grandfather No problems noted. Maternal Grandmother No problems noted. Paternal Grandfather No problems noted. Paternal Grandmother No problems noted. Sister No problems noted. Sister No problems noted. Brother No problems noted. Brother No problems noted. Brother No problems noted. Brother No problems noted. Brother No problems noted. Social History Housing: Other Alcohol intake: never Patient Tobacco Use Status: Never used Tobacco e-Cigarette/Vaping Use: Never Used Second Hand Smoke Exposure: No service: No Current occupational status: unemployed Cognitive needs: No Hearing needs: No Vision needs: No Questionnaire PHQ-9 Over the last 2 weeks, how often have you been bothered by any of the following problems? 1. Little interest or pleasure in doing things: not at all 2. Feeling down, depressed, or hopeless: not at all 3. Trouble falling or staying asleep, or sleeping too much: not at all 4. Feeling tired or having little energy: not at all 5. Poor appetite or overeating: not at all 6. Feeling bad about yourself - or that you are a failure or have let yourself or your family down: not at all 7. Trouble concentrating on things, such as reading the newspaper or watching television: not at all 8. Moving or speaking so slowly that other people could have noticed. Or the opposite - being so fidgety or restless that you have been moving around a lot more than usual: not at all 9. Thoughts that you would be better off or of hurting yourself in some way: not at all Total score: 0 Depression Screening Interpretation: Negative Depression Screening Done: Yes [id number] - PHQ-9 Billing: Yes Source: Developed by Drs. Yeison Vora, Stacey Nieves, Yemi Eugene and colleagues, with an educational wood from [employer]. Thrive Questionnaire Date Thrive assessed: 01/11/24 I am a: Parent/Caregiver What is your living situation today?: I have a steady place to live Within the past 12 months, did the food you bought not last and you didn't have the money to get more?: Never true Within the past 12 months, did you worry whether your food would run out before you got money to buy more?: Never true Do you have trouble paying for medicines?: No Do you have trouble getting transportation to medical appointments?: No Do you have trouble paying your heating and electricity bill?: No Do you have trouble taking care of your child, family member or friend?: No Do you have trouble with day-to-day activities such as bathing, preparing meals, shopping, managing finances, etc.?: No Are you currently unemployed and looking for a job?: No Are you interested in more education?: No Please select the resources that you would like help with: None Currently or been in a relationship where the following occur: I choose not to answer THRIVE Score: 0 JED-7 AMB Questionnaire JED-7 Date JED - 7 assessed: 04/17/23 Feeling nervous, anxious, or on edge: 1 = Several days Not being able to stop or control worryin = Several days Worrying too much about different things: 1 = Several days Trouble relaxin = Not at all Being so restless that it is hard to sit still: 0 = Not at all Becoming easily annoyed or irritable: 0 = Not at all Feeling afraid as if something awful might happen: 0 = Not at all Total JED-7 score (0-4 normal; 5-9 mild; 10-14 moderate; 15-21 severe): 3 Source: Developed by Drs. Yeison Vora, Stacey Nieves, Yemi Eugene and colleagues, with an educational wood from [employer]. JED-7 Assessment Billing JED-7 Assessment Tool: JED-7 Assessment 19614 Review of Systems Const Denies chills, Denies fever(s) and Denies headache(s) Eyes Denies blurry vision ENT Denies headache(s), Denies nasal discharge, Denies nasal obstruction, Denies odynophagia and Denies sinus pain Card Denies chest pain at rest and Denies chest pain with activity Resp Denies cough and Denies hemoptysis GI Denies diarrhea, Denies odynophagia, Denies vomiting and Denies hematemesis Reports as per HPI Musc Denies abnormal gait Skin/Breast Reports as per HPI Neuro Denies Neuro-related abnormal movements, Denies Abnormal speech present, Denies abnormal gait, Denies headache(s) and Denies Sensory deficit (Neuro) Psych Denies mood swings and Denies paranoia Endo Reports as per HPI Ever/Lymph Reports as per HPI Aller/Immun Reports as per HPI Physical exam (Primary Care) Vital Signs: Last Vital Signs Pulse 78 01/11/24 12:48 BP 140/100 H 01/11/24 12:48 Pulse Ox 98 01/11/24 12:48 Oxygen Delivery Method Room Air 01/11/24 12:48 BMI result Body Mass Index 29.1 Tobacco/Smoking Status: Tobacco use Status Tobacco use date assessed 10/10/23 01/11/24 12:46 Patient Tobacco Use Status Never used Tobacco 01/11/24 12:46 e-Cigarette/Vaping Use Never Used 01/11/24 12:46 PHQ-9: PHQ-9 Score PHQ-9: Total score 0 01/11/24 13:07 Depression Screening Interpretation: Negative Thrive Assessment: Date of Thrive Assessment Date Thrive assessed 01/11/24 01/11/24 13:04 Currently or been in a relationship where the following occur: I choose not to answer Const Other: Stuttering noticed General: cooperative, comfortable and no acute distress Orientation/consciousness: patient oriented x3 HENMT Head: Yes normocephalic and Yes atraumatic Eyes General: appearance normal, both eyes and all related structures Pupils: Equal, round and reactive pupils present EOM: EOMs intact bilaterally Neck Neck: Yes supple and No lymphadenopathy Thyroid: Thyroid normal Resp Effort & Inspection: normal respiratory effort and able to speak in complete sentences Auscultation: clear to auscultation bilaterally Cardio Heart sounds: S1 normal heart sound present and S2 normal heart sound present GI Palpation (GI): Soft to palpation and nontender Auscultation: normal bowel sounds General: Yes no CVA tenderness Back/Spine/Pelvis Back: no CVA tenderness Skin General skin exam: elasticity normal and turgor normal Neuro General: patient oriented x3 and gait normal Cranial nerves: Yes Equal, round and reactive pupils present Speech: No Abnormal speech present Sensory Exam: No Sensory deficit (Neuro) Coordination: Romberg test negative Extrem General: Yes normal exam except as noted and No edema Assessment and Plan Assessment & Plan (1) Encounter for general adult medical examination with abnormal findings: Code(s): Z00.01 - Encounter for general adult medical examination with abnormal findings (2) Lipid disorder: Code(s): E78.9 - Disorder of lipoprotein metabolism, unspecified (3) Hypertension, essential: Code(s): I10 - Essential (primary) hypertension (4) Learning disability: Code(s): F81.9 - Developmental disorder of scholastic skills, unspecified (5) Colon cancer screening: Code(s): Z12.11 - Encounter for screening for malignant neoplasm of colon (6) Cervicalgia: Code(s): M54.2 - Cervicalgia Plan Patient is 63-year-old gentlemen with learning disability came in for physical exam with his brother We could not locate any colonoscopy reports in the system at [facility] or [facility] I have placed a referral for him to be evaluated by Gastroenterology Blood pressure is elevated however his brother says that it is running fine at home His blood pressure was 110 x 72 in October of this year on same medications. Currently he is taking amlodipine 10 mg and atenolol 25 mg Lipid disorder: Continue simvastatin 40 mg daily Continue vitamin-D supplement He is complaining of pain in the back of his neck Patient most of the time looking down when he is sitting. Explained to him that this is most likely muscular I would recommend to adjust the posture He may take Tylenol for discomfort. Follow-up 4 months Orders: Orders Complete Blood Count Auto Diff Today E78.9 - Disorder of lipoprotein metabolism, unspecified, F81.9 - Developmental disorder of scholastic skills, unspecified, I10 - Essential (primary) hypertension, Z00.01 - Encounter for general adult medical examination with abnormal findings Comprehensive Met. Panel Today E78.9 - Disorder of lipoprotein metabolism, unspecified, F81.9 - Developmental disorder of scholastic skills, unspecified, I10 - Essential (primary) hypertension, Z00.01 - Encounter for general adult medical examination with abnormal findings LDL Cholesterol Direct Today E78.9 - Disorder of lipoprotein metabolism, unspecified, F81.9 - Developmental disorder of scholastic skills, unspecified, I10 - Essential (primary) hypertension, Z00.01 - Encounter for general adult medical examination with abnormal findings TSH reflex Free T4 Today E78.9 - Disorder of lipoprotein metabolism, unspecified, F81.9 - Developmental disorder of scholastic skills, unspecified, I10 - Essential (primary) hypertension, Z00.01 - Encounter for general adult medical examination with abnormal findings Referrals Gastroenterology Referral Z12.11 - Encounter for screening for malignant neoplasm of colon Medications: Discontinued hydrocortisone-acetic acid 1-2 % Discontinued Reason: Doctor's Order 4 drps otic (ears) TID 10 mL 0RF ciprofloxacin HCl 0.3% Discontinued Reason: Doctor's Order 2 drops into the conjunctival sac every 2 hours while awake for 2 days and 1 to 2 drops every 4 hours while awake for the next 5 days. 5 mL 0RF H10.9 - Unspecified conjunctivitis Coding Level of Care Code Est Pt Level 3 (60513) Est Pt Prev Care >65y(13811) Diagnoses Encounter for general adult medical examination with abnormal findings Z00.01 Lipid disorder E78.9 Hypertension, essential I10 Learning disability F81.9 Colon cancer screening Z12.11 Cervicalgia M54.2 Additional Codes JED-7 Assessment Billing - JED-7 Assessment Tool: JED-7 Assessment 40633 ([id number])
[2024-01-11 12:48] VITALS: BP 140/100; PULSE 78; O2SAT 98; BMI 29.1
== END 2024-01-11 13:06 | disposition home or self-care (01) ==
PROVIDERS: PCP Internal Medicine; Visit Provider Internal Medicine
DX: Z00.01 Encounter for general adult medical examination with abnormal findings (principal); H10.9 Unspecified conjunctivitis; E78.9 Disorder of lipoprotein metabolism, unspecified; I10 Essential (primary) hypertension; F81.9 Developmental disorder of scholastic skills, unspecified; Z12.11 Encounter for screening for malignant neoplasm of colon; M54.2 Cervicalgia
CPT/HCPCS: 99213; 99397

== ENCOUNTER 2024-01-11 13:12 | Outpatient (REF) | payer MEDICARE, MEDICAID, SELFPAY ==
[2024-01-11 16:08] LABS: MANUAL DIFF FLAG NO
[2024-01-11 16:11] LABS: Basophils Absolute Auto 0.1 X10*3/uL (0.0-0.2); Basophils Percent Auto 0.7 % (0-2); Eosinophils Absolute Auto 0.2 X10*3/uL (0.0-0.4); Eosinophils Percent Auto 2.2 % (0-4); Hematocrit 48.4 % (42.0-52.0); Hemoglobin 16.4 g/dl (14.0-18.0); Imm Gran Abs Auto 0.06 X10*3/uL (0.00-0.03); Imm Gran Pct Auto 0.7 % (0.0-0.4); Lymphocytes Absolute Auto 2.8 X10*3/uL (1.2-4.9); Lymphocytes Percent Auto 33.8 % (20-40); Mean Corpuscular HGB Conc 33.9 g/dl (31.0-36.0); Mean Corpuscular Hemoglobin 29.9 pg (27.0-33.0); Mean Corpuscular Volume 88.2 fL (80.0-98.0); Mean Platelet Volume 12.8 fL (9.4-12.4); Monocytes Absolute Auto 0.9 X10*3/uL (0.1-1.2); Monocytes Percent Auto 10.8 % (2-11); Neutrophils Absolute Auto 4.3 x10*3/uL (2.0-8.3); Neutrophils Percent Auto 51.8 % (45-73); Platelet Count 196 X10*3/uL (160-400); Red Blood Count 5.49 X10*6/uL (4.60-5.80); Red Cell Distribution Width 13.7 % (11.0-16.0); White Blood Count 8.2 X10*3/uL (4.8-10.8)
[2024-01-11 16:42] LABS: Alanine Aminotransferase 37 U/L (0-40); Albumin Level 4.4 g/dL (3.5-5.0); Alkaline Phosphatase 39 U/L (39-117); Anion Gap 14 (12-20); Aspartate Amino Transferase 26 U/L (5-37); Bilirubin Total 0.4 mg/dL (0.0-1.0); Blood Urea Nitrogen 13 mg/dL (9-16); Calcium 9.9 mg/dL (8.4-10.2); Carbon Dioxide 22 mmol/L (22-29); Chloride 111 mmol/L (96-108); Cholesterol 147 mg/dL (<200); Estimated Glomerular Filt Rate > 60; Glucose Fasting 112 mg/dL (60-99); Glucose Random 112 mg/dL (60-115); HDL Cholesterol 45 mg/dL (>40); LDL Cholesterol Calculated 58 mg/dL (<100); Potassium 3.6 mmol/L (3.3-5.1); Sodium 143 mmol/L (135-145); Total Protein 7.6 g/dL (6.5-8.0); Triglycerides 223 mg/dL (<150)
[2024-01-11 17:02] LABS: TSH reflex Free T4 1.48 uIU/mL (0.32-4.0)
[2024-01-13 00:08] LABS: LDL Cholesterol Direct 85 mg/dL (<100)
== END 2024-01-11 13:13 | disposition home or self-care (01) ==
LOC: HO.HMGCLDS 13:12
PROVIDERS: PCP Internal Medicine; Visit Provider Internal Medicine
DX: Z00.01 Encounter for general adult medical examination with abnormal findings (principal); I10 Essential (primary) hypertension; E78.9 Disorder of lipoprotein metabolism, unspecified; N28.9 Disorder of kidney and ureter, unspecified; F80.81 Childhood onset fluency disorder; F81.9 Developmental disorder of scholastic skills, unspecified
CPT/HCPCS: 36415; 80053; 80061; 83721; 84443; 85025

== ENCOUNTER 2024-01-16 08:46 | Outpatient (REF) | payer MEDICARE, MEDICAID, SELFPAY | END 2024-01-16 08:47 | disposition home or self-care (01) | LOC: HO.LAB 08:46 | PROVIDERS: Visit Provider Nurse Practitioner Family | DX: Z13.89 Encounter for screening for other disorder (principal) ==

== ENCOUNTER 2024-04-16 15:02 | Outpatient (AMB) | payer MEDICARE, MEDICAID, SELFPAY ==
[2024-04-16 15:10] VITALS: BP 130/86; PULSE 73; O2SAT 95; BMI 29.9
--- NOTE | 2024-04-16 15:10 | A.OFFPC_ITS ---
Vital Signs 04/16/24 15:10 Height 5 ft 7 in Weight 191 lb 2 oz BMI 29.9 BP 130/86 Blood Pressure Location Lt brachial Position Sitting Pulse 73 Pulse Source Pulse Oximeter Pulse Oximetry (%) 95 Oxygen Delivery Method Room Air Intake Visit Reasons: 4M F/U Allergies No Known Allergies Allergy (Verified 10/24/23 09:56) Medication List - Last Reconciled 04/16/24 by Jimmy Rucker MD acetaminophen 1,000 mg (2 x 500 mg) PO Q6H PRN amlodipine 10 mg PO DAILY 90 days atenolol 25 mg PO DAILY cholecalciferol (vitamin D3) 25 mcg PO DAILY 90 days simvastatin 40 mg PO BEDTIME Tobacco use date assessed: 10/10/23 Dental Screening Dental Screen Date: 10/10/23 HPI 4M F/U HPI Details Cologuard her do not want colonoscopy difficult preparation Labs before next visit Patient is 63-year-old gentlemen with learning disability came in with his brother for regular follow-up appointment Brother says that it is difficult for patient to be prepping for colonoscopy They have tried before few years ago and it was not successful Even during regulate days sometimes patient have fecal smearing They would like to cancel gastroenterology appointment which is coming up Sunday Instead they want to do Cologuard, order placed Blood pressure is stable now Currently he is taking amlodipine 10 mg and atenolol 25 mg Lipid disorder: Continue simvastatin 40 mg daily Continue vitamin-D supplement Labs to be done before next visit in 4 months [facility] Medical History Stuttering Nephropathy Lipid disorder Hypertension, essential Surgical History History of colonoscopy Hx of cholecystectomy Family History Father Alcohol abuse Mother HTN (hypertension) Sister Lung cancer Maternal Grandfather No problems noted. Maternal Grandmother No problems noted. Paternal Grandfather No problems noted. Paternal Grandmother No problems noted. Sister No problems noted. Sister No problems noted. Brother No problems noted. Brother No problems noted. Brother No problems noted. Brother No problems noted. Brother No problems noted. Social History Housing: Other Alcohol intake: never Patient Tobacco Use Status: Never used Tobacco e-Cigarette/Vaping Use: Never Used Second Hand Smoke Exposure: No service: No Current occupational status: unemployed Cognitive needs: No Hearing needs: No Vision needs: No Questionnaire PHQ-9 Over the last 2 weeks, how often have you been bothered by any of the following problems? 1. Little interest or pleasure in doing things: not at all 2. Feeling down, depressed, or hopeless: not at all 3. Trouble falling or staying asleep, or sleeping too much: not at all 4. Feeling tired or having little energy: not at all 5. Poor appetite or overeating: not at all 6. Feeling bad about yourself - or that you are a failure or have let yourself or your family down: not at all 7. Trouble concentrating on things, such as reading the newspaper or watching television: not at all 8. Moving or speaking so slowly that other people could have noticed. Or the opposite - being so fidgety or restless that you have been moving around a lot more than usual: not at all 9. Thoughts that you would be better off or of hurting yourself in some wa y: not at all Total score: 0 Depression Screening Interpretation: Negative Depression Screening Done: Yes 18351 - PHQ-9 Billing: Yes Source: Developed by Drs. Yeison Vora, Stacey Nieves, Yemi Eugene and colleagues, with an educational wood from [employer]. Thrive Questionnaire Date Thrive assessed: 04/16/24 I am a: Parent/Caregiver What is your living situation today?: I have a steady place to live Within the past 12 months, did the food you bought not last and you didn't have the money to get more?: Never true Within the past 12 months, did you worry whether your food would run out before you got money to buy more?: Never true Do you have trouble paying for medicines?: No Do you have trouble getting transportation to medical appointments?: No Do you have trouble paying your heating and electricity bill?: No Do you have trouble taking care of your child, family member or friend?: No Do you have trouble with day-to-day activities such as bathing, preparing meals, shopping, managing finances, etc.?: No Are you currently unemployed and looking for a job?: No Are you interested in more education?: No Please select the resources that you would like help with: None Currently or been in a relationship where the following occur: No concerns reported THRIVE Score: 0 AUDIT C Alcohol Use Questionnaire (AUDIT-C) 1. How often do you have a drink containing alcohol?: Never 3. How often do you have six or more drinks on one occasion?: Never Total Score: 0 Score Reviewed/Action Taken: Yes JED-7 AMB Questionnaire JED-7 Date JED - 7 assessed: 04/16/24 Feeling nervous, anxious, or on edge: 0 = Not at all Not being able to stop or control worryin = Not at all Worrying too much about different things: 0 = Not at all Trouble relaxin = Not at all Being so restless that it is hard to sit still: 0 = Not at all Becoming easily annoyed or irritable: 0 = Not at all Feeling afraid as if something awful might happen: 0 = Not at all Total JED-7 score (0-4 normal; 5-9 mild; 10-14 moderate; 15-21 severe): 0 Source: Developed by Drs. Yeison Vora, Stacey Nieves, Yemi Eugene and colleagues, with an educational wood from [employer]. JED-7 Assessment Billing JED-7 Assessment Tool: JED-7 Assessment 00087 Review of Systems Const Denies chills and Denies fever(s) ENT Denies epistaxis and Denies nasal discharge Card Denies chest pain Resp Denies chest congestion, Denies cough and Denies hemoptysis GI Denies diarrhea and Denies nausea Skin/Breast Denies rash Neuro Reports no additional complaints Psych Reports no additional complaints Endo Reports no additional complaints Physical exam (Primary Care) Vital Signs: Last Vital Signs Pulse 73 04/16/24 15:10 BP 130/86 04/16/24 15:10 Pulse Ox 95 04/16/24 15:10 Oxygen Delivery Method Room Air 04/16/24 15:10 BMI result Body Mass Index 29.9 Tobacco/Smoking Status: Tobacco use Status Tobacco use date assessed 10/10/23 04/16/24 15:10 Patient Tobacco Use Status Never used Tobacco 04/16/24 15:10 e-Cigarette/Vaping Use Never Used 04/16/24 15:10 PHQ-9: PHQ-9 Score PHQ-9: Total score 0 04/16/24 15:28 Depression Screening Interpretation: Negative Thrive Assessment: Date of Thrive Assessment Date Thrive assessed 04/16/24 04/16/24 15:13 Currently or been in a relationship where the following occur: No concerns reported Const General: cooperative, comfortable and no acute distress Orientation/consciousness: patient oriented x3 HENMT Head: Yes normocephalic Eyes General: appearance normal, both eyes and all related structures Neck Neck: Yes supple Resp Effort & Inspection: normal respiratory effort, no cough and no stridor Cardio Rhythm: regular rhythm Heart sounds: S1 normal heart sound present and S2 normal heart sound present Skin General skin exam: turgor normal Neuro General: patient oriented x3, tone normal and moves all extremities Extrem Right lower extremity: no edema Left lower extremity: no edema Coding Level of Care Code Est Pt Level 4 (30305) Complex EM visit Add On G2211 Diagnoses Hypertension, essential I10 Lipid disorder E78.9 Nephropathy N28.9 Learning disability F81.9 Additional Codes JED-7 Assessment Billing - JED-7 Assessment Tool: JED-7 Assessment 99953 ([id number]) Assessment & Plan Assessment & Plan (1) Hypertension, essential: Code(s): I10 - Essential (primary) hypertension Category: Medical (2) Lipid disorder: Code(s): E78.9 - Disorder of lipoprotein metabolism, unspecified Category: Medical (3) Nephropathy: Code(s): N28.9 - Disorder of kidney and ureter, unspecified Category: Medical (4) Learning disability: Code(s): F81.9 - Developmental disorder of scholastic skills, unspecified Category: Social Hx Plan t Patient is 63-year-old gentlemen with learning disability came in with his brother for regular follow-up appointment Brother says that it is difficult for patient to be prepping for colonoscopy They have tried before few years ago and it was not successful Even during regulate days sometimes patient have fecal smearing They would like to cancel gastroenterology appointment which is coming up Sunday Instead they want to do Cologuard, order placed Blood pressure is stable now Currently he is taking amlodipine 10 mg and atenolol 25 mg Lipid disorder: Continue simvastatin 40 mg daily Continue vitamin-D supplement Labs to be done before next visit in 4 months Orders: Orders Comprehensive [place]. Panel Fast Today E78.9 - Disorder of lipoprotein metabolism, unspecified, F81.9 - Developmental disorder of scholastic skills, unspecified, I10 - Essential (primary) hypertension, N28.9 - Disorder of kidney and ureter, unspecified TSH reflex Free T4 Today I10 - Essential (primary) hypertension Complete Blood Count Auto Diff Today E78.9 - Disorder of lipoprotein metabolism, unspecified, F81.9 - Developmental disorder of scholastic skills, unspecified, I10 - Essential (primary) hypertension, N28.9 - Disorder of kidney and ureter, unspecified Lipid Panel Today E78.9 - Disorder of lipoprotein metabolism, unspecified, F81.9 - Developmental disorder of scholastic skills, unspecified, I10 - Essential (primary) hypertension, N28.9 - Disorder of kidney and ureter, unspecified Hemoglobin A1c Today E78.9 - Disorder of lipoprotein metabolism, unspecified, F81.9 - Developmental disorder of scholastic skills, unspecified, I10 - Essential (primary) hypertension, N28.9 - Disorder of kidney and ureter, unspecified Referrals Cologuard Test Z12.11 - Encounter for screening for malignant neoplasm of colon, Z12.12 - Encounter for screening for malignant neoplasm of rectum
== END 2024-04-16 15:29 | disposition home or self-care (01) ==
PROVIDERS: PCP Internal Medicine; Visit Provider Internal Medicine
DX: I10 Essential (primary) hypertension (principal); E78.9 Disorder of lipoprotein metabolism, unspecified; N28.9 Disorder of kidney and ureter, unspecified; F81.9 Developmental disorder of scholastic skills, unspecified

== ENCOUNTER → 2024-04-16 15:02 | Outpatient (BNVA) | payer MEDICARE, MEDICAID, SELFPAY | PROVIDERS: PCP Internal Medicine; Visit Provider Internal Medicine | DX: I10 Essential (primary) hypertension (principal); E78.9 Disorder of lipoprotein metabolism, unspecified; N28.9 Disorder of kidney and ureter, unspecified; F81.9 Developmental disorder of scholastic skills, unspecified | CPT/HCPCS: 96127; 99212 ==

== ENCOUNTER 2024-09-16 14:53 | Outpatient (AMB) | payer MEDICARE, MEDICAID, SELFPAY ==
--- NOTE | 2024-09-16 14:56 | A.OFFPC_ITS ---
Vital Signs 09/16/24 14:57 Height 5 ft 7 in Weight 195 lb 8 oz BMI 30.6 BP 136/88 Blood Pressure Location Rt brachial Position Sitting Pulse 76 Pulse Source Pulse Oximeter Pulse Oximetry (%) 95 Oxygen Delivery Method Room Air Intake Visit Reasons: 4 months f/up Allergies No Known Allergies Allergy (Verified 09/16/24 14:57) Medication List - Last Reconciled 09/16/24 by Jimmy Rucker MD acetaminophen 1,000 mg (2 x 500 mg) PO Q6H PRN amlodipine 10 mg PO DAILY 90 days atenolol 25 mg PO DAILY cholecalciferol (vitamin D3) 25 mcg PO DAILY 90 days simvastatin 40 mg PO BEDTIME Tobacco use date assessed: 09/16/24 Fall risk assessment: No Falls in past year Last assessed Fall Risk: 09/16/24 Dental Screening Dental Screen Date: 09/16/24 Did you have a dental visit in the last 12 months?: Yes Did you have a dental problem in the last 6 months where you did not have access to dental care?: No Was dental information given to patient?: Patient has dentist HPI 4 months f/up HPI Details The patient is a 64-year-old male presenting for follow-up. - Assessment and discussion regarding de layed laboratory tests for renal and hepatic function were conducted as the patient did not complete the laboratory tests as previously planned since the last visit in December. - The patient denied any new symptoms jerez ch as chest pain, shortness of breath, or gastrointestinal disturbances. - Reassurance was provided regarding the presence of skin tags, emphasizing that these are benign and not of medical concern. - taking all his medications, blood pres sure is stable Problem List - Follow-up for skin tags - Evaluation needed for renal function - Evaluation needed for hepatic function - hypertension - obesity - lipid disorder - stuttering - learning disability Patient Instructions - Schedule and complete fasting blood te sts as soon as possible to evaluate kidney and liver function. - Maintain hydration by consuming at [address] 2-3 bottles of water daily. - Continue physical activities like walk ing, ensuring to do it safely and avoid slipping. - Monitor and report any new symptoms or health concerns promptly. Review of Systems - General: No fever no chills - Neurological: No headaches no dizziness - Ear nose throat: No sore throat no hearing difficulty no ear pain - Cardiovascular: No syncope, no chest pain, no palpitations - Gastrointestinal: No nausea vomiting or diarrhea - Endocrine: No polyuria polydipsia no heat intolerance - Genitourinary: No dysuria , no blood in urine Physical Exam General: No acute distress HEENT: No acute findings Neck: Supple Respiratory system: Able to talk in full sentences, no audible wheeze cardiovascular: S1-S2 regular in rate and rhythm Gastrointestinal: No pain Extremities: No new findings DIRECTOR HOME: Alert awake oriented x3 motor sensory intact Skin: Normal turgor, presence of skin tags noted [facility] Medical History Stuttering Nephropathy Lipid disorder Hypertension, essential Surgical History History of colonoscopy Hx of cholecystectomy Family History Father Alcohol abuse Mother HTN (hypertension) Sister Lung cancer Maternal Grandfather No problems noted. Maternal Grandmother No problems noted. Paternal Grandfather No problems noted. Paternal Grandmother No problems noted. Sister No problems noted. Sister No problems noted. Brother No problems noted. Brother No problems noted. Brother No problems noted. Brother No problems noted. Brother No problems noted. Social History Housing: Other Alcohol intake: never Patient Tobacco Use Status: Never used Tobacco e-Cigarette/Vaping Use: Never Used Second Hand Smoke Exposure: No service: No Current occupational status: unemployed Cognitive needs: No Hearing needs: No Vision needs: No Questionnaire PHQ-9 Over the last 2 weeks, how often have you been bothered by any of the following problems? 1. Little interest or pleasure in doing things: not at all 2. Feeling down, depressed, or hopeless: not at all 3. Trouble falling or staying asleep, or sleeping too much: not at all 4. Feeling tired or having little energy: not at all 5. Poor appetite or overeating: not at all 6. Feeling bad about yourself - or that you are a failure or have let yourself or your family down: not at all 7. Trouble concentrating on things, such as reading the newspaper or watching television: nearly every day 8. Moving or speaking so slowly that other people could have noticed. Or the opposite - being so fidgety or restless that you have been moving around a lot more than usual: not at all 9. Thoughts that you would be better off or of hurting yourself in some way: not at all Total score: 3 Depression Screening Interpretation: Negative Depression Screening Done: Yes 31449 - PHQ-9 Billing: Yes Source: Developed by Drs. Yeison Vora, Stacey Nieves, Yemi Eugene and colleagues, with an educational wood from [employer]. Thrive Questionnaire Date Thrive assessed: 09/16/24 I am a: Parent/Caregiver What is your living situation today?: I have a steady place to live Within the past 12 months, did the food you bought not last and you didn't have the money to get more?: Never true Within the past 12 months, did you worry whether your food would run out before you got money to buy more?: Never true Do you have trouble paying for medicines?: No Do you have trouble getting transportation to medical appointments?: No Do you have trouble paying your heating and electricity bill?: No Do you have trouble taking care of your child, family member or friend?: I choose not to answer this question Do you have trouble with day-to-day activities such as bathing, preparing meals, shopping, managing finances, etc.?: No Are you currently unemployed and looking for a job?: No Are you interested in more education?: No Please select the resources that you would like help with: None Currently or been in a relationship where the following occur: I choose not to answer THRIVE Score: 0 AUDIT C Alcohol Use Questionnaire (AUDIT-C) 1. How often do you have a drink containing alcohol?: Never 3. How often do you have six or more drinks on one occasion?: Never Total Score: 0 Score Reviewed/Action Taken: Yes JED-7 AMB Questionnaire JED-7 Date JED - 7 assessed: 09/16/24 Feeling nervous, anxious, or on edge: 0 = Not at all Not being able to stop or control worryin = Not at all Worrying too much about different things: 0 = Not at all Trouble relaxin = Not at all Being so restless that it is hard to sit still: 0 = Not at all Becoming easily annoyed or irritable: 0 = Not at all Feeling afraid as if something awful might happen: 0 = Not at all Total JED-7 score (0-4 normal; 5-9 mild; 10-14 moderate; 15-21 severe): 0 Source: Developed by Drs. Yeison Vora, Stacey Nieves, Yemi Eugene and colleagues, with an educational wood from [employer]. JED-7 Assessment Billing JED-7 Assessment Tool: JED-7 Assessment 47119 Physical exam (Primary Care) Vital Signs: Last Vital Signs Pulse 76 09/16/24 14:57 BP 136/88 09/16/24 14:57 Pulse Ox 95 09/16/24 14:57 Oxygen Delivery Method Room Air 09/16/24 14:57 BMI result Body Mass Index 30.6 Tobacco/Smoking Status: Tobacco use Status Tobacco use date assessed 09/16/24 09/16/24 15:00 Patient Tobacco Use Status Never used Tobacco 09/16/24 15:00 e-Cigarette/Vaping Use Never Used 09/16/24 15:00 PHQ-9: PHQ-9 Score PHQ-9: Total score 3 09/16/24 15:00 Depression Screening Interpretation: Negative Thrive Assessment: Date of Thrive Assessment Date Thrive assessed 09/16/24 09/16/24 15:00 Currently or been in a relationship where the following occur: I choose not to answer Coding Level of Care Code Est Pt Level 4 (29831) Complex EM visit Add On G2211 Diagnoses Hypertension, essential I10 Lipid disorder E78.9 Nephropathy N28.9 Learning disability F81.9 Additional Codes JED-7 Assessment Billing - JED-7 Assessment Tool: JED-7 Assessment 64167 ([id number]) PHQ-9 - 32977 - PHQ-9 Billing: Yes ([id number]) Assessment & Plan Assessment & Plan (1) Hypertension, essential: Code(s): I10 - Essential (primary) hypertension Category: Medical (2) Lipid disorder: Code(s): E78.9 - Disorder of lipoprotein metabolism, unspecified Category: Medical (3) Nephropathy: Code(s): N28.9 - Disorder of kidney and ureter, unspecified Category: Medical (4) Learning disability: Code(s): F81.9 - Developmental disorder of scholastic skills, unspecified Category: Social Hx Plan The patient is a 64-year-old male presenting for follow-up. - Assessment and discussion regarding delayed laboratory tests for renal and hepatic function were conducted as the patient did not complete the laboratory tests as previously planned since the last visit in December. - The patient denied any new symptoms such as chest pain, shortness of breath, or gastrointestinal disturbances. - Reassurance was provided regarding the presence of skin tags, emphasizing that these are benign and not of medical concern. - taking all his medications, blood pressure is stable Problem List - Follow-up for skin tags - Evaluation needed for renal function - Evaluation needed for hepatic function - hypertension - obesity - lipid disorder - stuttering - learning disability - nephropathy stable Patient Instructions - Schedule and complete fasting blood tests as soon as possible to evaluate kidney and liver function. - Maintain hydration by consuming at least 2-3 bottles of water daily. - Continue physical activities like walking, ensuring to do it safely and avoid slipping. - Monitor and report any new symptoms or health concerns promptly.
[2024-09-16 14:57] VITALS: BP 136/88; PULSE 76; O2SAT 95; BMI 30.6
--- OUTSIDE RECORDS SUMMARY | 2024-09-16 18:49 | XMS_ITS | Clinical Summary ---
Author Organization [facility] Address [address] [place] [address] Care Team Providers Care Traffic Sign Erection Supervisor Name Role Phone Unavailable Primary Care Provider Unavailabl e Social History Tobacco Use Types Packs/Day Years Used Date Smoking Tobacco: Never Assessed Sex and Gender Information Value Date Recorded Sex Assigned at Not on file Legal Sex Male 9:13 PM EST Gender Identity Not on file Sexual Orientation Not on file Plan of Treatment Health Maintenance Due Date Last Done Comments DTaP,Tdap,and Td Vaccines (1 - Tdap) 1977 Pneumococcal Vaccine: 50+ Ye ars (1 of 1 - PCV) 2008 Zoster Vaccines (1 of 2) 2008 Abdominal Aortic Aneurysm (A AA) Screen 08/10/2023 Cholesterol Screening (Lipid Panel) 08/10/2023 Colorectal Cancer Screening: Colonoscopy 08/10/2023 Depression Screening 08/10/2023 Falls Risk Assessment 08/10/2023 Hepatitis C Screening 08/10/2023 Social Influencers of Health Screening 08/10/2023 COVID-19 Vaccine (1 - 2023-2 5 season) 2024 Influenza Vaccine (#1) 2024 RSV Immunization Patients 60 + Years Old (1 - 1-dose 75+ series) 2033 HIB Vaccines Aged Out No longer eligi ble based on patient's age to complete this topic HPV Vaccines Aged Out No longer eligi ble based on patient's age to complete this topic Hepatitis A Vaccines Aged Out No long er eligible based on patient's age to complete this topic Hepatitis B Vaccines Aged Out No long er eligible based on patient's age to complete this topic IPV Vaccines Aged Out No longer eligi ble based on patient's age to complete this topic MMR Vaccines Aged Out No longer eligi ble based on patient's age to complete this topic Meningococcal ACWY Vaccine Aged Out N o longer eligible based on patient's age to complete this topic Meningococcal B Vacine Aged Out No lo nger eligible based on patient's age to complete this topic RSV Immunization Patients Un albert 20 months Aged Out No longer eligible b ased on patient's age to complete this topic Varicella Vaccines Aged Out No longer eligible based on patient's age to complete this topic
--- OUTSIDE RECORDS SUMMARY | 2024-09-16 18:49 | XMS_ITS | Encounter Summary ---
Author Organization [facility] Address 100 [facility] 200 [place] [address] Phone Care Team Providers Care Prototype Special Build Name Role Phone Jimmy Rucker MD Primary Care Provider [phone] Encounter Details Date Type Department Care Team (Late st Contact Info) Description 12/05/2020 Orders Only [facility] 100 [facility] 200 [place] [address] Keith Ivy MD [address] [address] Stage 3a chronic kidney disease (HCC); Hypertension Social History Tobacco Use Types Packs/Day Years Used Date Smoking Tobacco: Never Smokeless Tobacco: Never Alcohol Use Standard Drinks/Week Comments No 0 (1 standard drink = 0.6 oz pur e alcohol) Sex and Gender Information Value Date Recorded Sex Assigned at Not on file Legal Sex Male 4:58 PM EST Gender Identity Not on file Sexual Orientation Not on file documented as of this encounter Plan of Treatment Upcoming Encounters Date Type Department Care Team (Late st Contact Info) Description 03/31/2025 1:00 PM EDT Office Visit [facility] 7[address] [facility] 204 [place] [address] Keith Ivy MD [address] [address] documented as of this encounter Procedures Procedure Name Priority Date/Time Associated Diagnosis Comments CREATININE CLEARANCE, URINE, 24 HOUR Routine 12/02/2020 10:00 AM EDT Hypertension Stage 3a chronic kidney disease (HCC) IRON PANEL (FE, TIBC, TSAT) Routine 11/29/2020 1:05 PM EDT Stage 3a chronic kidney disease (HCC) URINE ALBUMIN / CREATININE RATIO Routine 11/29/2020 1:05 PM EDT Stage 3a chronic kidney disease (HCC) VITAMIN D 25 HYDROXY Routine 11/29/2020 1:05 PM EDT Stage 3a chronic kidney disease (HCC) URINALYSIS Routine 11/29/2020 1:05 PM EDT Stage 3a chronic kidney disease (HCC) URIC ACID Routine 11/29/2020 1:05 PM EDT Stage 3a chronic kidney disease (HCC) PTH, INTACT Routine 11/29/2020 1:05 PM EDT Stage 3a chronic kidney disease (HCC) MAGNESIUM Routine 11/29/2020 1:05 PM EDT Stage 3a chronic kidney disease (HCC) HEMOGLOBIN A1C Routine 11/29/2020 1:05 PM EDT Stage 3a chronic kidney disease (HCC) FERRITIN Routine 11/29/2020 1:05 PM EDT Stage 3a chronic kidney disease (HCC) RENAL FUNCTION PANEL Routine 11/29/2020 1:05 PM EDT Stage 3a chronic kidney disease (HCC) documented in this encounter Results * (ABNORMAL) Urine Creatinine clearance, 24 hour (12/02/2020 10:00 AM EDT) Creatinine, Urine 87.6 MG/DL [facility] Creatine, Serum/Plasma 1.4(H) (0.7-1.2) MG/DL [facility] Creatinine Clear, Urine 56.5(L) (66-143) ML/MIN [facility] Creatinine in 24 hour Urine 1.1 (0.98-2.2) GM/24HR [facility] Comment: Testing performed or reported by [facility], a Service of [address] [address] Clem Mancia MD, Photovoltaic Testing Technician Urine (Urine, Clean Catch) 12/02/2020 10:00 AM EDT 12/02/2020 1:20 PM EDT Keith Ivy MD LAB URINE ORDERABLES Final Result Performing Organization Address City/[facility]/ZIP Co de Phone Number [facility] * Urinalysis (11/29/2020 1:05 PM EDT) Appearance LIGHT YELLOW [facility] Comment:CLEAR Specific [place] 1.015 (1.002-1. 030) [facility] pH Urine 7.5 (5.0-8.0) [facility] Albumin, Urine NEGATIVE (NEG) [facility] Glucose, Ur NEGATIVE (NEG) [facility] Ketones, Urine NEGATIVE (NEG) [facility] Urobilinogen Urine NORMAL (NORM) MG/DL [facility] Bilirubin Urine NEGATIVE (NEG) [facility] Hemoglobin Presence in Urine NEGATIVE (NEG) [facility] Nitrite, Urine NEGATIVE (NEG) [facility] Leukocyte Esterase Urine NEGATIVE (NEG) [facility] Comment: Testing performed or reported by [facility], a Service of [address] [address] Clem Mancia MD, Photovoltaic Testing Technician Urine (Urine, Clean Catch) 11/29/2020 1:05 PM EDT 11/29/2020 1:33 PM EDT Keith Ivy MD LAB URINE ORDERABLES Final Result Performing Organization Address [facility] de Phone Number [facility] * Ferritin (11/29/2020 1:05 PM EDT) Ferritin [phone]) NG/ML [facility] Comment: Testing performed or reported by [facility], a Service of [address] [place] [address] Clem Mancia MD, Photovoltaic Testing Technician Blood (Blood, Venous) 11/29/2020 1:05 PM EDT 11/29/2020 1:31 PM EDT Keith Ivy MD LAB BLOOD ORDERABLES Final Result Performing Organization Address City/[facility]/ZIP Co de Phone Number [facility] * Vitamin D 25 Hydroxy (11/29/2020 1:05 PM EDT) Vitamin D, 25-Hydroxy 38.2 (20-50) NG/ML [facility] Comment: Testing performed or reported by [facility], a Service of [address] [address] Clem Mancia MD, Photovoltaic Testing Technician Blood (Blood, Venous) 11/29/2020 1:05 PM EDT 11/29/2020 1:31 PM EDT Result [facility] Keith Ivy MD LAB BLOOD ORDERABLES Final Result Performing Organization Address City/[facility] de Phone Number [facility] * Urine Albumin / Creatinine Ratio (11/29/2020 1:05 PM EDT) Urine Microalbumin <12.0 (<20) MG/L [facility] Comment: The urine microalbumin test is designed to monitor renal function. When screening for Bence Noel proteinuria, urine electrophoresis is recommended. Microalbumin/Creati nine Ratio Unable to calculate (0-20) MG/GM [facility] Microalb/Creat Ratio 77.5 MG/DL [facility] Comment: Testing performed or reported by [facility], a Service of [address] [address] Clem Mancia MD, Photovoltaic Testing Technician Urine (Urine, Clean Catch) 11/29/2020 1:05 PM EDT 11/29/2020 1:33 PM EDT Keith Ivy MD LAB URINE ORDERABLES Final Result [facility] * Uric Acid (11/29/2020 1:05 PM EDT) Uric Acid 6.4 (2.6-8.7) MG/DL [facility] Comment: Testing performed or reported by [facility], a Service of [facility], [address] [place] [address] Clem Mancia MD, Photovoltaic Testing Technician Blood (Blood, Venous) 11/29/2020 1:05 PM EDT 11/29/2020 1:31 PM EDT us Keith Ivy MD LAB BLOOD ORDERABLES Final Result Performing Organization Address City/[facility]/ZIP Co de Phone Number [facility] * (ABNORMAL) Renal Function Panel (11/29/2020 1:05 PM EDT) Glucose 71 (70-99) MG/DL [facility] BUN 18 (8-23) MG/DL [facility] Creatinine 1.4(H) (0.7-1.2) MG/DL [facility] Sodium 144 (133-145) MMOL/L [facility] Potassium 4.3 (3.6-5.2) MMOL/L [facility] Chloride 108(H) (98-107) MMOL/L [facility] Bicarbonate (CO2) 27 (22-29) MMOL/L [facility] Anion Gap 9 (4-17) [facility] Albumin 4.6 (3.4-4.8) GM/DL [facility] Calcium 10.1 (8.6-10.5) MG/DL [facility] Phosphorus, Serum 3.0 (2.5-4.5) MG/DL [facility] Est GFR Non 54 ML/MIN/1.7 3 M2 [facility] Comment: Creatinine based estimated glomerular filtration rate (eGFR) is calculated using the Chronic Kidney Disease Epidemiology Collaboration (CKD-EPI). The CKD-EPI creatinine equation has not been validated in children (<18 years), women or in some racial or ethnic subgroups other than Caucasians and Americans. EST GFR 63 ML/MIN/1.7 3 M2 [facility] Comment: Creatinine based estimated glomerular filtration rate (eGFR) is calculated using the Chronic Kidney Disease Epidemiology Collaboration (CKD-EPI). The CKD-EPI creatinine equation has not been validated in children (<18 years), women or in some racial or ethnic subgroups other than Caucasians and Americans. Testing performed or reported by [facility], a Service of [address] [address] Clem Mancia MD, Photovoltaic Testing Technician Blood (Blood, Venous) 11/29/2020 1:05 PM EDT 11/29/2020 1:31 PM EDT Result Yenifer Ivy MD LAB BLOOD ORDERABLES Final Result Performing Organization Address [facility] Co de Phone Number [facility] * PTH, Intact (11/29/2020 1:05 PM EDT) PTH, Intact 32 (15-65) PG/ML [facility] Comment: Testing performed or reported by [facility], a Service of [facility], [address] [place] [phone] Clem Mancia MD, Photovoltaic Testing Technician Blood (Blood, Venous) 11/29/2020 1:05 PM EDT 11/29/2020 1:31 PM EDT Result Yenifer Ivy MD LAB BLOOD ORDERABLES Final Result Performing Organization Address [facility] Co de Phone Number [facility] * Magnesium (11/29/2020 1:05 PM EDT) Magnesium 2.0 (1.6-2.3) mg/dL [facility] Comment: Testing performed or reported by [facility], a Service of [address] [address] Clem Mancia MD, Photovoltaic Testing Technician Blood (Blood, Venous) 11/29/2020 1:05 PM EDT 11/29/2020 1:31 PM EDT Result Yenifer Ivy MD LAB BLOOD ORDERABLES Final Result Performing Organization Address [facility] de Phone Number [facility] * Iron Panel (Fe, TIBC, TSAT) (11/29/2020 1:05 PM EDT) Iron 107 (45-160) MCG/DL [facility] UIBC 265 (110-370) MCG/DL [facility] TIBC 372 (155-530) MCG/DL [facility] Iron Saturation (TSat) 29 (20-55) % [facility] Comment: Testing performed or reported by [facility], a Service of [facility], [address] [place] [id number] Clem Mancia MD, Photovoltaic Testing Technician Blood (Blood, Venous) 11/29/2020 1:05 PM EDT 11/29/2020 1:31 PM EDT Keith Ivy MD LAB BLOOD ORDERABLES Final Result Performing Organization Address [facility] de Phone Number [facility] * (ABNORMAL) Hemoglobin A1c (11/29/2020 1:05 PM EDT) Hemoglobin A1C 6.2(H) (4.0-5.6) % [facility] Comment: MONITORING: In known diabetic patients, hemoglobin A1c targets should be discussed with health care provider. DIAGNOSTIC USE: ??The [place] Diabetes Association (ADA) and the World Health Organization (WHO) recommend the use of HbA1c to diagnose diabetes using a threshold of 6.5%. Patients who have an HbA1c between 5.7% and 6.4% are considered at increased risk for developing diabetes in the future. CAUTION: Falsely low HbA1c results may be observed in patients with hemolytic anemia, homozygous forms of abnormal hemoglobin (e.g. SS, CC, SC), , recent blood loss or hemoglobin F greater than 7%. Fructosamine may be used as an alternate test in these cases. REFERENCE: ADA: Standards of Medical Care in Diabetes 2020, The Journal of Clinical and Applied Research and Education Volume 43, Supplement 1 Testing performed or reported by [facility], a Service of [facility], [address] [place] [id number] Clem Mancia MD, Photovoltaic Testing Technician Blood (Blood, Venous) 11/29/2020 1:05 PM EDT 11/29/2020 1:31 PM EDT Keith Ivy MD LAB BLOOD ORDERABLES Final Result [facility] documented in this encounter Visit Diagnoses Diagnosis Stage 3a chronic kidney disease (HCC) Hypertension documented in this encounter Care Teams Prototype Special Build Relationship Specialty Start Date End Date Jimmy Rucker MD [address] [place] [id number] PCP - General 07/26/20 documented as of this encounter
--- OUTSIDE RECORDS SUMMARY | 2024-09-16 18:49 | XMS_ITS | Encounter Summary ---
Author Organization [facility] Address 100 [facility] 200 [place] [address] Phone Care Team Providers Care Linen Room Houseperson Name Role Phone Jimmy Rucker MD Primary Care Provider [phone] Encounter Details Date Type Department Care Team (Late st Contact Info) Description 12/01/2021 Documentation Only [facility] 100 [facility] 200 [place] [phone] Spike Burton MD [address] [place] [phone] Social History Tobacco Use Types Packs/Day Years [...] Visit [facility] [address] [facility] 204 [place] [address] Keith Ivy MD [address] [facility] 204 [place] [address] documented as of this encounter Visit Diagnoses Not on filedocumented in this encounter Care Teams Linen Room Houseperson Relationship Specialty Start Date End Date Jimmy Rucker MD [address] [facility] [place] [address] PCP - General 07/26/20 documented as of this encounter
--- OUTSIDE RECORDS SUMMARY | 2024-09-16 18:49 | XMS_ITS | Clinical Summary ---
Author Organization [facility] Address 100 [facility] 20 0 [place] [address] Phone Care Team Providers Care Sales Account Specialist Name Role Phone Jimmy Rucker MD Primary Care Provider [phone] Allergies No known active allergies Medications cholecalciferol (VITAMIN D-3) 25 MCG (1000 UT) tablet Take 1 tablet by mouth 1 (one) time each day Active amLODIPine (NORVASC) 5 MG tablet TAKE 1 TABLET BY MOUTH 1 TIME EACH DAY. 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 04/04/2023 Hypertension 08/31/2020 Family History Medical History Relation Comments Hypertension Mother Cancer Sibling sister; lung can cer Relation Status Comments Father Mother Sibling Social History Tobacco Use Types Packs/Day Years Used Date Smoking Tobacco: Never Smokeless Tobacco: Never Tobacco Cessation:Counseling Given: Not Answered Alcohol Use Standard Drinks/Week Comments No 0 (1 standard drink = 0.6 oz pur e alcohol) Sex and Gender Information Value Date Recorded Sex Assigned at Not on file Legal Sex Male 4:58 PM EST Gender Identity Not on file Sexual Orientation Not on file Last Filed Vital Signs Vital Sign Reading Time Taken Comments Blood Pressure 140/80 03/31/2024 1:43 PM EDT Pulse 72 03/31/2024 1:43 PM EDT Temperature - - Respiratory Rate - - Oxygen Saturation 95% 03/31/2024 1:43 PM EDT Inhaled Oxygen Concentration - - Weight 84.8 kg (187 lb) 03/31/2024 1:43 PM EDT Height 172.7 cm (5' 8 ) 06/02/2021 1:36 PM EST Body Mass Index 28.43 06/02/2021 1:36 PM EST Plan of Treatment Upcoming Encounters Date Type Department Care Team (Late st Contact Info) Description 03/31/2025 1:00 PM EDT Office Visit [facility] [address] [phone] Keith Ivy MD [address] [phone] Health Maintenance Due Date Last Done Comments Pneumococcal Vaccine: 65+ Ye ars (1 of 2 - PCV) 1964 Colorectal Cancer Screening: Annual FOBT 2007 Colorectal Cancer Screening: Colonoscopy 2007 Colorectal Cancer Screening: Sigmoidoscopy 2007 Influenza Vaccine (#1) 2024 Hepatitis B Vaccine Aged Out No longe r eligible based on patient's age to complete this topic Insurance MEDICARE MEDICAID [place] Care Teams Sales Account Specialist Relationship Specialty Start Date End Date Jimmy Rucker MD [address] [place], [place] [phone] PCP - General 07/26/20
== END 2024-09-16 15:19 | disposition home or self-care (01) ==
PROVIDERS: PCP Internal Medicine; Visit Provider Internal Medicine
DX: I10 Essential (primary) hypertension (principal); E78.9 Disorder of lipoprotein metabolism, unspecified; N28.9 Disorder of kidney and ureter, unspecified; F81.9 Developmental disorder of scholastic skills, unspecified

== ENCOUNTER → 2024-09-16 14:53 | Outpatient (BNVA) | payer MEDICARE, MEDICAID, SELFPAY | PROVIDERS: PCP Internal Medicine; Visit Provider Internal Medicine | DX: I10 Essential (primary) hypertension (principal); E78.9 Disorder of lipoprotein metabolism, unspecified; N28.9 Disorder of kidney and ureter, unspecified; F81.9 Developmental disorder of scholastic skills, unspecified | CPT/HCPCS: 96127; 99212 ==

== ENCOUNTER 2024-10-03 09:11 | Outpatient (REF) | payer MEDICARE, MEDICAID, SELFPAY ==
--- OUTSIDE RECORDS SUMMARY | 2024-10-03 10:01 | XMS_ITS | Clinical Summary ---
Author Organization [facility] Address [address] [place] [address] Care Team Providers Care Freight Car Cleaner Name Role Phone Unavailable Primary Care Provider [...]
--- OUTSIDE RECORDS SUMMARY | 2024-10-03 10:01 | XMS_ITS | Encounter Summary ---
Author Organization [facility] Address 100 [facility] 200 [place] [address] Phone Care Team Providers Care Manager Nc Name Role Phone Jimmy Rucker MD Primary Care Provider Encounter Details Date Type Department Care Team (Late st Contact Info) Description 12/01/2021 Documentation Only [facility] 100 [facility] 200 [place] [phone] Spike Burton MD [address] [place] [phone] Social History Tobacco Use Types Packs/Day Years [...] Visit [facility] [address] [facility] 204 [place] [address] Keith Ivy MD 64[address] [facility] [address] [place] [address] documented as of this encounter Visit Diagnoses Not on filedocumented in this encounter Care Teams Manager Nc Relationship Specialty Start Date End Date Jimmy Rucker MD 1961 [facility] [place] [address] PCP - General 07/26/20 documented as of this encounter
--- OUTSIDE RECORDS SUMMARY | 2024-10-03 10:01 | XMS_ITS | Encounter Summary ---
Author Organization [facility] Address [address] [facility] [address] [place] [address] Phone Care Team Providers Care Audio Visual Manager Name Role Phone Jimmy Rucker MD Primary Care Provider [phone] Encounter Details Date Type Department Care Team (Late st Contact Info) Description 12/05/2020 Orders Only [facility] 100 [facility] [address] [place] [address] Keith Ivy MD [address] [phone] Stage 3a chronic kidney disease [...] Visit [facility] [address] [address] Keith Ivy MD [address] [address] documented as of this encounter [...] [facility] Creatinine Clear, Urine 56.5(L) (66-143) ML/MIN [facility] Creatinine in 24 hour Urine 1.1 (0.98-2.2) GM/24HR [facility] Comment: Testing performed or reported by [facility], a Service of [address] [address] Clem Mancia MD, Drink Waiter Urine (Urine, Clean Catch) 12/02/2020 10:00 AM EDT 12/02/2020 1:20 PM EDT Keith Ivy MD LAB URINE ORDERABLES Final Result Performing Organization Address City/[facility]/ZIP Co de Phone Number [facility] * Urinalysis (11/29/2020 1:05 PM EDT) Appearance LIGHT YELLOW [facility] Comment:CLEAR Specific [address] 1.015 (1.002-1. 030) [facility] pH Urine 7.5 (5.0-8.0) [facility] Albumin, Urine NEGATIVE (NEG) [facility] Glucose, Ur NEGATIVE (NEG) [facility] Ketones, Urine NEGATIVE (NEG) [facility] Urobilinogen Urine NORMAL (NORM) MG/DL [facility] Bilirubin Urine NEGATIVE (NEG) [facility] Hemoglobin Presence in Urine NEGATIVE (NEG) [facility] Nitrite, Urine NEGATIVE (NEG) [facility] Leukocyte Esterase Urine NEGATIVE (NEG) [facility] Comment: Testing performed or reported by [facility], a Service of [address] [address] Clem Mancia MD, Drink Waiter Urine (Urine, Clean Catch) 11/29/2020 1:05 PM EDT 11/29/2020 1:33 PM EDT Keith Ivy MD LAB URINE ORDERABLES Final Result Performing Organization Address [facility] de Phone Number [facility] * Ferritin (11/29/2020 1:05 PM EDT) Ferritin 239 (16-294) NG/ML [facility] Comment: Testing performed or reported by [facility], a Service of [address] [place] [address] Clem Mancia MD, Drink Waiter Blood (Blood, Venous) 11/29/2020 1:05 PM EDT 11/29/2020 1:31 PM EDT Keith Ivy MD LAB BLOOD ORDERABLES Final Result Performing Organization Address City/[facility]/ZIP Co de Phone Number [facility] * Vitamin D 25 Hydroxy (11/29/2020 1:05 PM EDT) Vitamin D, 25-Hydroxy 38.2 (20-50) NG/ML [facility] Comment: Testing performed or reported by [facility], a Service of [address] [address] Clem Mancia MD, Drink Waiter Blood (Blood, Venous) 11/29/2020 1:05 PM EDT 11/29/2020 1:31 PM EDT Result [facility] Keith Ivy MD LAB BLOOD ORDERABLES Final Result Performing Organization Address City/[facility] de Phone Number [facility] * Urine Albumin / Creatinine Ratio (11/29/2020 1:05 PM EDT) Urine Microalbumin <12.0 (<20) MG/L [facility] Comment: The urine microalbumin test is designed to monitor renal function. When screening for Bence Noel proteinuria, urine electrophoresis is recommended. Microalbumin/Creati nine Ratio Unable to calculate (0-20) MG/GM [facility] Microalb/Creat Ratio 77.5 MG/DL [facility] Comment: Testing performed or reported by [facility], a Service of [address] [address] Clem Mancia MD, Drink Waiter Urine (Urine, Clean Catch) 11/29/2020 1:05 PM EDT 11/29/2020 1:33 PM EDT Keith Ivy MD LAB URINE ORDERABLES Final Result [facility] * Uric Acid (11/29/2020 1:05 PM EDT) Uric Acid 6.4 (2.6-8.7) MG/DL [facility] Comment: Testing performed or reported by [facility], a Service of [facility], [address] [place] [address] Clem Mancia MD, Drink Waiter Blood (Blood, Venous) 11/29/2020 1:05 PM EDT 11/29/2020 1:31 PM EDT us Keith Ivy MD LAB BLOOD ORDERABLES Final Result Performing Organization Address City/[facility]/ZIP Co de Phone Number [facility] * (ABNORMAL) Renal Function Panel (11/29/2020 1:05 PM EDT) Glucose 71 (70-99) MG/DL [facility] BUN 18 (8-23) MG/DL [facility] Creatinine 1.4(H) (0.7-1.2) MG/DL [facility] Sodium 144 (133-145) MMOL/L [facility] Potassium 4.3 (3.6-5.2) MMOL/L [facility] Chloride 108(H) (98-107) MMOL/L [facility] Bicarbonate (CO2) 27 (22-29) MMOL/L [facility] Anion Gap 9 (4-17) [facility] Albumin 4.6 (3.4-4.8) GM/DL [facility] Calcium 10.1 (8.6-10.5) MG/DL [facility] Phosphorus, Serum 3.0 (2.5-4.5) MG/DL [facility] Est GFR Non 54 ML/MIN/1.7 3 M2 [facility] Comment: Creatinine based estimated glomerular filtration rate (eGFR) is calculated using the Chronic Kidney Disease Epidemiology Collaboration (CKD-EPI). The CKD-EPI creatinine equation has not been validated in children (<18 years), women or in some racial or ethnic subgroups other than Caucasians and Americans. EST GFR 63 ML/MIN/1.7 3 M2 [facility] Comment: Creatinine based estimated glomerular filtration rate (eGFR) is calculated using the Chronic Kidney Disease Epidemiology Collaboration (CKD-EPI). The CKD-EPI creatinine equation has not been validated in children (<18 years), women or in some racial or ethnic subgroups other than Caucasians and Americans. Testing performed or reported by [facility], a Service of [address] [address] Clem Mancia MD, Drink Waiter Blood (Blood, Venous) 11/29/2020 1:05 PM EDT 11/29/2020 1:31 PM EDT Result Yenifer Ivy MD LAB BLOOD ORDERABLES Final Result Performing Organization Address [facility] Co de Phone Number [facility] * PTH, Intact (11/29/2020 1:05 PM EDT) PTH, Intact 32 (15-65) PG/ML [facility] Comment: Testing performed or reported by [facility], a Service of [facility], [address] [place] [id number] Clem Mancia MD, Drink Waiter Blood (Blood, Venous) 11/29/2020 1:05 PM EDT 11/29/2020 1:31 PM EDT Result Yenifer Ivy MD LAB BLOOD ORDERABLES Final Result Performing Organization Address [facility] Co de Phone Number [facility] * Magnesium (11/29/2020 1:05 PM EDT) Magnesium 2.0 (1.6-2.3) mg/dL [facility] Comment: Testing performed or reported by [facility], a Service of [address] [address] Clem Mancia MD, Drink Waiter Blood (Blood, Venous) 11/29/2020 1:05 PM EDT 11/29/2020 1:31 PM EDT Result Yenifer Ivy MD LAB BLOOD ORDERABLES Final Result Performing Organization Address [facility] de Phone Number [facility] * Iron Panel (Fe, TIBC, TSAT) (11/29/2020 1:05 PM EDT) Iron 107 (45-160) MCG/DL [facility] UIBC 265 (110-370) MCG/DL [facility] TIBC 372 (155-530) MCG/DL [facility] Iron Saturation (TSat) 29 (20-55) % [facility] Comment: Testing performed or reported by [facility], a Service of [facility], [address] [place] [id number] Clem Mancia MD, Drink Waiter Blood (Blood, Venous) 11/29/2020 1:05 PM EDT 11/29/2020 1:31 PM EDT Keith Ivy MD LAB BLOOD ORDERABLES Final Result Performing Organization Address [facility] de Phone Number [facility] * (ABNORMAL) Hemoglobin A1c (11/29/2020 1:05 PM EDT) Hemoglobin A1C 6.2(H) (4.0-5.6) % [facility] Comment: MONITORING: In known diabetic patients, hemoglobin A1c targets should be discussed with health care provider. DIAGNOSTIC USE: ??The [place] Diabetes Association (ADA) and the World Health [...] Supplement 1 Testing performed or reported by [facility], a Service of [facility], [address] [place] [id number] Clem Mancia MD, Drink Waiter Blood (Blood, Venous) 11/29/2020 1:05 PM EDT 11/29/2020 1:31 PM EDT Keith Ivy MD LAB BLOOD ORDERABLES Final Result [facility] documented in this encounter Visit Diagnoses Diagnosis Stage 3a chronic kidney disease (HCC) Hypertension documented in this encounter Care Teams Audio Visual Manager Relationship Specialty Start Date End Date Jimmy Rucker MD [address] [place] [id number] PCP - General 07/26/20 documented as of this encounter
--- OUTSIDE RECORDS SUMMARY | 2024-10-03 10:01 | XMS_ITS | Clinical Summary ---
Author Organization [facility] Address [address] [facility] [address] [place] [address] Phone Care Team Providers Care Biometric Fingerprinting Technician Name Role Phone Jimmy Rucker MD Primary Care Provider [phone] Allergies No known active allergies Medications cholecalciferol [...] Office Visit [facility] [address] [phone] Keith Ivy MD [address] [phone] Health Maintenance Due Date Last Done Comments Pneumococcal Vaccine: 65+ Ye ars (1 of 2 - PCV) 1964 Colorectal Cancer Screening: Annual FOBT 2007 Colorectal Cancer Screening: Colonoscopy 2007 Colorectal Cancer Screening: Sigmoidoscopy 2007 Influenza Vaccine (#1) 2024 Hepatitis B Vaccine Aged Out No longe r eligible based on patient's age to complete this topic Insurance MEDICARE MEDICAID [place] Care Teams Biometric Fingerprinting Technician Relationship Specialty Start Date End Date Jimmy Rucker MD [address] [place], [place] [id number] PCP - General 07/26/20
[2024-10-03 10:08] LABS: MANUAL DIFF FLAG NO
[2024-10-03 10:26] LABS: Basophils Absolute Auto 0.1 X10*3/uL (0.0-0.2); Basophils Percent Auto 0.8 % (0-2); Eosinophils Absolute Auto 0.2 X10*3/uL (0.0-0.4); Eosinophils Percent Auto 1.8 % (0-4); Hematocrit 46.4 % (42.0-52.0); Imm Gran Abs Auto 0.04 X10*3/uL (0.00-0.03); Imm Gran Pct Auto 0.5 % (0.0-0.4); Lymphocytes Absolute Auto 2.9 X10*3/uL (1.2-4.9); Lymphocytes Percent Auto 33.6 % (20-40); Mean Corpuscular HGB Conc 34.5 g/dl (31.0-36.0); Mean Corpuscular Volume 87.1 fL (80.0-98.0); Mean Platelet Volume 11.8 fL (9.4-12.4); Monocytes Absolute Auto 0.8 X10*3/uL (0.1-1.2); Monocytes Percent Auto 8.7 % (2-11); Neutrophils Absolute Auto 4.8 x10*3/uL (2.0-8.3); Neutrophils Percent Auto 54.6 % (45-73); Platelet Count 193 X10*3/uL (160-400); Red Blood Count 5.33 X10*6/uL (4.60-5.80); Red Cell Distribution Width 13.5 % (11.0-16.0); White Blood Count 8.8 X10*3/uL (4.8-10.8)
[2024-10-03 10:33] LABS: Estimated Average Glucose 137 mg/dL; Hemoglobin A1C 188.2907 umol/L; Hemoglobin A1c % 6.4 % (<6.0); Total Hemoglobin (HGBA1C) 4098.4028 umol/L
[2024-10-03 11:15] LABS: Alanine Aminotransferase 46 U/L (0-40); Albumin Level 4.1 g/dL (3.5-5.0); Alkaline Phosphatase 35 U/L (39-117); Anion Gap 13 (12-20); Aspartate Amino Transferase 33 U/L (5-37); Bilirubin Total 0.6 mg/dL (0.0-1.0); Blood Urea Nitrogen 13 mg/dL (9-16); Calcium 9.3 mg/dL (8.4-10.2); Carbon Dioxide 19 mmol/L (22-29); Chloride 113 mmol/L (96-108); Cholesterol 147 mg/dL (<200); Estimated Glomerular Filt Rate > 60; Glucose Fasting 110 mg/dL (60-99); HDL Cholesterol 38 mg/dL (>40); LDL Cholesterol Calculated 71 mg/dL (<100); Potassium 3.6 mmol/L (3.3-5.1); Sodium 141 mmol/L (135-145); Total Protein 7.5 g/dL (6.5-8.0); Triglycerides 194 mg/dL (<150)
== END 2024-10-03 09:12 | disposition home or self-care (01) ==
LOC: HO.HMGCLDS 09:11
PROVIDERS: PCP Internal Medicine; Visit Provider Internal Medicine
DX: Z13.1 Encounter for screening for diabetes mellitus (principal); E78.9 Disorder of lipoprotein metabolism, unspecified; N28.9 Disorder of kidney and ureter, unspecified; F81.9 Developmental disorder of scholastic skills, unspecified; I10 Essential (primary) hypertension
CPT/HCPCS: 36415; 80053; 80061; 83036; 84443; 85025